=== PATIENT | female | born 1950 | race Caucasian/White ===

== ENCOUNTER 2017-02-22 07:34 | Outpatient (CLI) | payer MEDICARE ==
[2017-02-22 08:17] LABS: BASOPHILS # (AUTO) 0.1 10^3/uL (0.0-0.1); BASOPHILS % (AUTO) 1.2 %; EOSINOPHILS # (AUTO) 0.3 10^3/uL (0.0-0.7); EOSINOPHILS % (AUTO) 4.7 %; HCT - HEMATOCRIT 42.2 % (37.0-47.0); HGB - HEMOGLOBIN 14.1 g/dL (12.0-16.0); LYMPHOCYTES # (AUTO) 1.8 10^3/uL (1.5-3.5); LYMPHOCYTES % (AUTO) 31.3 %; MEAN CORPUSCULAR HEMOGLOBIN 27.8 pg (27.0-31.0); MEAN CORPUSCULAR HGB CONC 33.4 g/dL (32.0-36.0); MEAN CORPUSCULAR VOLUME 83.3 fL (81.0-99.0); MONOCYTES # (AUTO) 0.5 10^3/uL (0.0-1.0); MONOCYTES % (AUTO) 9.2 %; NEUTROPHILS # (AUTO) 3.1 10^3/uL (1.5-6.6); NEUTROPHILS % (AUTO) 53.6 %; RED BLOOD COUNT 5.06 10^6/uL (4.20-5.40); RED CELL DISTRIBUTION WIDTH 14.1 % (12.0-15.0); UNCORRECTED WHITE BLOOD COUNT 5.8 x10^3/uL; WHITE BLOOD COUNT 5.8 x10^3/uL (4.8-10.8)
[2017-02-22 08:58] LABS: ALBUMIN/GLOBULIN RATIO 1.6 (1.0-2.2); BILIRUBIN,TOTAL 0.6 mg/dL (0.2-1.0); BUN - BLOOD UREA NITROGEN 18 mg/dL (6-20); CALCIUM 9.4 mg/dL (8.5-10.3); CARBON DIOXIDE - CO2 24 mmol/L (21-32); CHLORIDE 103 mmol/L (101-111); CHOL/HDL RATIO 3.9 (<4.4); CHOLESTEROL 282 mg/dL; CREATININE 0.8 mg/dL (0.4-1.0); GFR - MDRD 72 (>89); GLUCOSE 95 mg/dL (70-100); HDL CHOLESTEROL 72 mg/dL; LDL/HDL RATIO 2.7 (<4.4); POTASSIUM 3.9 mmol/L (3.5-5.0); SODIUM 138 mmol/L (135-145); TOTAL PROTEIN 7.2 g/dL (6.7-8.2); TRIGLYCERIDES 79 mg/dL; VLDL CHOLESTEROL 16 mg/dL
== END 2017-02-22 07:35 | disposition home or self-care (01) ==
LOC: LAB 07:34
PROVIDERS: ATTEND Physician Assistant Medical
DX: E55.9 Vitamin D deficiency, unspecified (principal); E78.5 Hyperlipidemia, unspecified; M81.0 Age-related osteoporosis without current pathological fracture; Z79.899 Other long term (current) drug therapy
CPT/HCPCS: 36415; 80053; 80061; 82306; 84443; 85025

== ENCOUNTER 2017-08-12 07:29 | Day surgery (SDC) | payer MEDICARE ==
[2017-08-12] MEDS ORDERED: LACTATED RINGERS 1,000 ML IV ONE (07:50)
[2017-08-12] MEDS ORDERED: SIMETHICONE 40 MG/0.6 ML 30 ML BOTTLE ONE (07:54)
[2017-08-12] MEDS ORDERED: MIDAZOLAM 2 MG/2 ML VIAL IVP ONE (08:35)
[2017-08-12] MEDS ORDERED: fentaNYL 250 MCG/5 ML VIAL IVP ONE (08:35)
[2017-08-12 09:31] VITALS: BP 144/75
== END 2017-08-12 07:30 | disposition home or self-care (01) ==
LOC: SDS 07:29
PROVIDERS: ATTEND Surgery
PROC: 0DJD8ZZ Inspection of Lower Intestinal Tract, Via Natural or Artificial Opening Endoscopic (ICD-10-PCS; principal; 2017-08-12 08:30)
DX: Z12.11 Encounter for screening for malignant neoplasm of colon (principal)
CPT/HCPCS: A9270; G0121; J3010; J7120

== ENCOUNTER 2017-09-13 07:11 | Outpatient (CLI) | payer MEDICARE | END 2017-09-13 07:12 | disposition critical access hospital (66) | LOC: EMS 07:11 | PROVIDERS: ATTEND Surgery | DX: R42 Dizziness and giddiness (principal); R11.2 Nausea with vomiting, unspecified; R19.7 Diarrhea, unspecified | CPT/HCPCS: A0425; A0427 ==

== ENCOUNTER 2017-09-13 07:25 | Inpatient (IN) | payer MEDICARE ==
--- NOTE | 2017-09-13 07:42 | ED Physician Documentation ---
PD HPI FOCAL NEURO - Stated complaint Stated Complaint: L SIDED WEAKNESS - Chief complaint Chief Complaint: Neuro - History obtained from History obtained from: Patient, Family, EMS - History of Present Illness Timing - onset: Enter time (529), Today Timing - duration: Hours Timing - details: Abrupt onset, Still present Time of symptom onset unknown: Time of onset unknown Severity of deficit: Severe Weakness: No: Face, Arm, Hand, Leg, Foot, Right, Left, Other Numbness: No: Face, Arm, Hand, Leg, Foot, Right, Left, Other Associated symptoms: Nausea / vomiting, Other (vertigo propelling patient to the left.) Contributing factors: negative: Anticoagulated Baseline status: positive: A&OX3, ambulatory, indep Similar symptoms before: Has not had sx before Recently seen: Not recently seen - Additional information Additional information: Previously healthy 66-year-old female on no medications awoke this morning about 530 with profound dizziness and noted that she was propelled to the left when she attempted to ambulate. She has had persistence of the symptoms and nausea vomiting associated with them. She denies any weakness she denies any difficulty with her speech and she denies any incoordination with the exception of her balance which is specifically propelling her to the left when she tries to walk. She describes an odd pain or sensation to the face on the left last night and this is better but not resolved this morning. Review of Systems Constitutional: denies: Fever, Chills, Myalgias Eyes: denies: Decreased vision Ears: denies: Ear pain Nose: denies: Congestion Throat: denies: Sore throat Cardiac: denies: Chest pain / pressure, Palpitations Respiratory: denies: Dyspnea, Cough GI: reports: Nausea, Vomiting. denies: Abdominal Pain : denies: Dysuria, Frequency Skin: denies: Rash Musculoskeletal: denies: Neck pain, Back pain, Extremity pain Neurologic: reports: Other (dizziness and off balance propelled to the left.). 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 - Present Medications Home Medications: Ambulatory Orders Medication Instructions Recorded Confirmed Fexofenadine HCl [Abby Allergy] 60 mg PO DAILY 08/12/17 08/12/17 - Allergies Allergies/Adverse Reactions: Allergies Allergy/AdvReac Type Severity Reaction Status Date / Time codeine AdvReac Nausea Verified 08/11/17 13:13 meperidine [From Demerol] AdvReac Nausea Verified 08/11/17 13:13 promethazine [From Phenergan] AdvReac Nausea Verified 08/11/17 13:13 - Social History Does the pt smoke?: No Smoking Status: Never smoker Does the pt drink ETOH?: Yes Does the pt have substance abuse?: No PD ED PE NORMAL - Vitals Vital signs reviewed: Yes (hypertensive) - General General: Alert and oriented X 3, No acute distress, Well developed/nourished - HEENT HEENT: Atraumatic, PERRL, EOMI, Ears normal, Moist mucous membranes, Pharynx benign, Dentition benign, Other (There are 5 beats of nystagmus to the right only ) - Neck Neck: Supple, no meningeal sign, No bony TTP, No JVD, No bruit - Cardiac Cardiac: RRR, No murmur - Respiratory Respiratory: No respiratory distress, Clear bilaterally - Abdomen Abdomen: Soft, Non tender - Back Back: No CVA TTP, No spinal TTP - Derm Derm: Normal color, Warm and dry, No rash - Extremities Extremities: No deformity, No edema - Neuro Neuro: No motor deficit, No sensory deficit Eye Opening: Spontaneous Motor: Obeys Commands Verbal: Oriented GCS Score: 15 - Psych Psych: Normal mood, Normal affect - Free text exam Free text exam: The patient has several beats of nystagmus to the right only and when she attempts to stand up to walk she lists specifically to the left. This is obvious when she attempts to stand or to move forward at all off to the left she goes. NIHSS - Time Time: 07:40 - Level of Consciousness Level of consciousness: (0) Alert, Keenly responsive LOC Questions: (0) Answers both Q's correct LOC Commands: (0) Performs both correctly - Gaze Best Gaze: (0) Normal - Visual Visual: (0) No loss - Facial Palsy Facial Palsy: (0) Normal, symmetrical movement - Motor Arms (both separate) Motor Arm (right): (0) No drift Motor Arm (left): (0) No drift - Motor Legs (both separate) Motor Leg (right): (0) No drift Motor Leg (left): (0) No drift - Limb Ataxia Limb Ataxia: (0) Absent - Sensory Sensory: (0) Normal - Best Language Best Language: (0) No aphasia - Dysarthria Dysarthria: (0) Normal - Extinction and Inattention (formally neg Extinction and inattention: (0) No abnormality - Total Score/Results Total Score/Result: 0 Results - Vitals Vitals: Vital Signs - 24 hr 09/13/17 09/13/17 09/13/17 07:28 08:34 09:40 Temperature 36.1 C L 36.2 C L Heart Rate 76 77 74 Respiratory 16 15 16 Rate Blood Pressure 177/91 H 164/97 H 170/93 H O2 Saturation 96 97 97 09/13/17 09/13/17 11:28 12:44 Temperature 36.2 C L 36.3 C L Heart Rate 85 84 Respiratory 15 16 Rate Blood Pressure 184/97 H 160/95 H O2 Saturation 97 99 Oxygen O2 Source Room air - EKG (time done) 0743 Rate: Rate (enter#) (83) Rhythm: NSR Intervals: LBBB Compare to prior EKG: Old EKG unavailable Computer interpretation: Agree with computer - Labs Labs: Laboratory Tests 09/13/17 09/13/17 09/13/17 08:35 08:35 08:35 WBC 8.1 RBC 5.21 Hgb 14.5 Hct 43.9 MCV 84.3 MCH 27.9 MCHC 33.1 RDW 15.1 H Plt Count 192 MPV 8.9 Neut # 6.7 H Lymph # 1.0 L [place] # 0.3 Eos # 0.0 Baso # 0.0 Absolute Nucleated RBC 0.00 Nucleated RBC % 0.0 Sodium 134 L Potassium 3.5 Chloride 103 Carbon Dioxide 21 Anion Gap 10.0 BUN 12 Creatinine 0.6 Estimated GFR (MDRD) 100 Glucose 146 H Calcium 9.0 Total Bilirubin < 0.2 L AST 24 ALT 17 Alkaline Phosphatase 79 Troponin I < 0.04 Total Protein 7.3 Albumin 4.3 Globulin 3.0 Albumin/Globulin Ratio 1.4 Lipase 13 L Urine Color Urine Clarity Urine pH Ur Specific [place] Urine Protein Urine Glucose (UA) Urine Ketones Urine Occult Blood Urine Nitrite Urine Bilirubin Urine Urobilinogen Ur Leukocyte Esterase Urine RBC Urine WBC Ur Squamous Epith Cells Urine Bacteria Ur Microscopic Review Urine Culture Comments 09/13/17 09:29 WBC RBC Hgb Hct MCV MCH MCHC RDW Plt Count MPV Neut # Lymph # [place] # Eos # Baso # Absolute Nucleated RBC Nucleated RBC % Sodium Potassium Chloride Carbon Dioxide Anion Gap BUN Creatinine Estimated GFR (MDRD) Glucose Calcium Total Bilirubin AST ALT Alkaline Phosphatase Troponin I Total Protein Albumin Globulin Albumin/Globulin Ratio Lipase Urine Color YELLOW Urine Clarity SL. CLOUDY Urine pH 7.0 Ur Specific [place] 1.015 Urine Protein NEGATIVE Urine Glucose (UA) 100 H Urine Ketones TRACE Urine Occult Blood NEGATIVE Urine Nitrite NEGATIVE Urine Bilirubin NEGATIVE Urine Urobilinogen 0.2 (NORMAL) Ur Leukocyte Esterase NEGATIVE Urine RBC 0-5 Urine WBC 0-3 Ur Squamous Epith Cells RARE Squamous Urine Bacteria Many H Ur Microscopic Review INDICATED Urine Culture Comments INDICATED - Rads (name of study) CT angio neck Radiology: Prelim report reviewed (Impression: 1. Normal CTA of the neck. Carotid and vertebral arteries are patent without significant atherosclerotic disease, stenosis, or dissection.), EMP read indepedently, See rad report CT angio head Radiology: Prelim report reviewed (Impression: 1. Normal CTA of the head. No large vessel occlusion, significant vascular stenosis or aneurysm.), EMP read indepedently, See rad report CT head without Radiology: Prelim report reviewed (Impression: Generalized age-related cortical atrophic changes without evidence of acute intracranial abnormality.), EMP read indepedently, See rad report PD MEDICAL DECISION MAKING - ED course Complexity details: reviewed old records, reviewed results, re-evaluated patient , considered differential, d/w patient, d/w family ED course: 66-year-old previously well female has awoken this morning with symptoms of a lateral medullary infarction. She has propelling vertigo to the left and this has persisted. She has some nausea associated with this and this is improved with use of Zofran. She has rapid nystagmus to the right and lists to the left. She has some mild difficulty with swallowing but has retained temperature sensation to the face and upper extremities. Jenn Henderson neurology at [facility] is consulted in the case and she recommends a head impulse test to help distinguish infarct vs. peripheral labyrinthitis. A head impulse test is performed and the patient is not able to fixate with turning the head rapidly from left to right there is a secade delay. This would indicate a vestibular etiology vs a central etiology. She is admitted to observation with profound symptoms. Departure - Departure Disposition: ED Place in Observation Clinical Impression: Labyrinthitis, acute Qualifiers: Laterality: left Qualified Code(s): H83.02 - Labyrinthitis, left ear Condition: Stable Discharge Date/Time: 09/13/17 13:03
[2017-09-13] MEDS ORDERED: ONDANSETRON 4 MG/2 ML VIAL IVP STA (07:48)
[2017-09-13] MEDS ORDERED: MECLIZINE 12.5 MG TABLET PO STA (07:48)
--- NOTE | 2017-09-13 07:58 | CT Preliminary Report ---
Exam: CT HEAD W/O STROKE PROTOCOL IMPRESSION: Generalized age-related cortical atrophic changes without evidence of acute intracranial abnormality. [facility] The above findings were discussed with Dr. De Dios by Dr. Daniel Raya at 07:55 hrs on 09/13/17. SITE ID: [id number]
--- NOTE | 2017-09-13 07:58 | CT Report ---
EXAM: CT HEAD EXAM DATE: 09/13/2017 07:48 AM. CLINICAL HISTORY: Propelling vertigo left. Left-sided weakness. COMPARISON: None. TECHNIQUE: Multiaxial CT images were obtained from the foramen magnum to the vertex. Reformats: Coron al. IV contrast: None. In accordance with CT protocol optimization, one or more of the following dose reduction techniques w ere utilized for this exam: automated exposure control, adjustment of mA and/or KV based on patient s ize, or use of iterative reconstructive technique. FINDINGS: Parenchyma: No intraparenchymal hemorrhage. No evidence of mass, midline shift, or CT findings of acu te infarction. Enriquez-white differentiation is distinct. Diffuse chronic microangiopathic white matter changes are evident. Extraaxial Spaces: No subdural or epidural collections identified. Ventricles: The ventricles and cortical sulci are enlarged, consistent with age-related tissue loss. Sinuses and orbits: Imaged paranasal sinuses, orbits, and mastoids show no significant abnormality. Bones: No evidence of fracture or calvarial defect. Other: None. IMPRESSION: Generalized age-related cortical atrophic changes without evidence of acute intracranial abnormality. RADIA The above findings were discussed with Dr. De Dios by Dr. Daniel Raya at 07:55 hrs on 09/13/17. Referring Provider Line: [phone] SITE ID: [id number]
[2017-09-13] MEDS ORDERED: IOPAMIDOL-300 100 ML VIAL ONE (08:04)
[2017-09-13 08:39] LABS: BASOPHILS % (AUTO) 0.4 %; EOSINOPHILS % (AUTO) 0.5 %; HGB - HEMOGLOBIN 14.5 g/dL (12.0-16.0); LYMPHOCYTES % (AUTO) 12.3 %; MEAN CORPUSCULAR HEMOGLOBIN 27.9 pg (27.0-31.0); MEAN CORPUSCULAR HGB CONC 33.1 g/dL (32.0-36.0); MEAN CORPUSCULAR VOLUME 84.3 fL (81.0-99.0); MEAN PLATELET VOLUME 8.9 fL (7.9-10.8); MONOCYTES # (AUTO) 0.3 10^3/uL (0.0-1.0); MONOCYTES % (AUTO) 3.6 %; NEUTROPHILS # (AUTO) 6.7 10^3/uL (1.5-6.6); NEUTROPHILS % (AUTO) 83.2 %; PLT - PLATELET COUNT 192 10^3/uL (130-450); RED BLOOD COUNT 5.21 10^6/uL (4.20-5.40); RED CELL DISTRIBUTION WIDTH 15.1 % (12.0-15.0); WHITE BLOOD COUNT 8.1 x10^3/uL (4.8-10.8)
[2017-09-13 09:22] LABS: ALBUMIN 4.3 g/dL (3.2-5.5); ALBUMIN/GLOBULIN RATIO 1.4 (1.0-2.2); ALKALINE PHOSPHATASE 79 IU/L (42-121); ALT ALANINE AMINOTRANSFERASE 17 IU/L (10-60); AST ASPARTATE AMINOTRANSFERASE 24 IU/L (10-42); BILIRUBIN,TOTAL < 0.2 mg/dL (0.2-1.0); BUN - BLOOD UREA NITROGEN 12 mg/dL (6-20); CARBON DIOXIDE - CO2 21 mmol/L (21-32); CHLORIDE 103 mmol/L (101-111); CREATININE 0.6 mg/dL (0.4-1.0); GFR - MDRD 100 (>89); GLUCOSE 146 mg/dL (70-100); LIPASE 13 U/L (22-51); SODIUM 134 mmol/L (135-145); TOTAL PROTEIN 7.3 g/dL (6.7-8.2)
[2017-09-13 09:36] LABS: BILIRUBIN,URINE NEGATIVE (NEGATIVE); GLUCOSE, URINE (UA) 100 mg/dL (NEGATIVE); KETONES,URINE (UA) TRACE mg/dL (NEGATIVE); LEUKOCYTE ESTERASE, URINE NEGATIVE (NEGATIVE); NITRITE,URINE NEGATIVE (NEGATIVE); OCCULT BLOOD,URINE NEGATIVE (NEGATIVE); PROTEIN,URINE NEGATIVE (NEGATIVE); UROBILINOGEN,URINE 0.2 (NORMAL) E.U./dL (NORMAL)
[2017-09-13 09:46] LABS: CLARITY,URINE SL. CLOUDY (CLEAR)
[2017-09-13 09:52] LABS: BACTERIA,URINE Many /HPF (None Seen); RBC,URINE 0-5 /HPF (0-5); SQUAMOUS EPITHELIAL CELL,UR RARE Squamous (<= Few)
[2017-09-13] MEDS ORDERED: IOPAMIDOL-300 100 ML VIAL IVP ONE (09:52)
--- NOTE | 2017-09-13 10:06 | CT Report ---
EXAM: CT ANGIOGRAM HEAD. CT SCAN OF THE HEAD WITH CONTRAST. EXAM DATE: 09/13/2017 09:53 AM CLINICAL HISTORY: 66-year-old woman with propelling vertigo to the left and left-sided weakness. COMPARISON: Noncontrast head CT done immediately before. TECHNIQUE: - CT Scan Head: Using a multidetector scanner, axial images were acquired from the foramen magnum to the skull vertex following contrast administration. - CT Angiogram: Using a multidetector scanner, high-resolution axial images were acquired from the sk ull base through vertex following rapid infusion of intravenous contrast. Reformats: Multiplanar MIP reformats were reconstructed. Nascet criteria used for stenosis measurement. IV Contrast: 100 cc Isovue-300. In accordance with CT protocol optimization, one or more of the following dose reduction techniques w ere utilized for this exam: automated exposure control, adjustment of mA and/or KV based on patient s ize, or use of iterative reconstructive technique. FINDINGS: CTA HEAD: RIGHT: - Visualized Internal Carotid: Patent without significant stenosis or aneurysm. There is trace athero sclerotic plaque along the siphon. - Anterior Cerebral: Patent without significant stenosis or aneurysm. - Middle Cerebral: Patent without significant stenosis or aneurysm. - Posterior Cerebral: Patent without significant stenosis or aneurysm. - Posterior Communicating: Patent. No aneurysm. - Visualized Vertebral: Patent without significant stenosis or dissection. LEFT: - Visualized Internal Carotid: Patent without significant stenosis or aneurysm. There is minimal athe rosclerotic plaque along the siphon. - Anterior Cerebral: Patent without significant stenosis or aneurysm. - Middle Cerebral: Patent without significant stenosis or aneurysm. - Posterior Cerebral: Patent without significant stenosis or aneurysm. - Posterior Communicating: Not well seen. - Visualized Vertebral: Patent without significant stenosis or dissection. CENTRAL: - Anterior Communicating: Patent. No aneurysm. - Basilar: Patent without significant stenosis, dissection, or aneurysm. Dural Venous Sinuses and Major Central Veins: Patent. POSTCONTRAST HEAD: No abnormal enhancement. Prominent developmental venous anomaly is incidentally no jodie in the anterior left frontal lobe, a normal variant. IMPRESSION: 1. Normal CTA of the head. No large vessel occlusion, significant vascular stenosis, or aneurysm. RADIA Referring Provider Line: [phone] SITE ID: [id number]
--- NOTE | 2017-09-13 10:10 | CT Report ---
EXAM: CT ANGIOGRAM NECK EXAM DATE: 09/13/2017 09:53 AM. CLINICAL HISTORY: Propelling vertigo left. COMPARISON: 66-year-old woman with left-sided weakness and propelling vertigo to the left. TECHNIQUE: Routine axial helical imaging was performed from the skull base through the aortic arch. R econstructions: Routine multiplanar 3D MIP reconstructions. IV Contrast: 100 cc Isovue-300. Evaluatio n of arterial stenosis is based on a NASCET method of measurement. In accordance with CT protocol optimization, one or more of the following dose reduction techniques w ere utilized for this exam: automated exposure control, adjustment of mA and/or KV based on patient s ize, or use of iterative reconstructive technique. FINDINGS: RIGHT: - Common and Internal Carotid: Patent without signficant stenosis. There is trace calcified atheroscl erotic plaque at the bifurcation and along the siphon. Stenosis by NASCET criteria: 0%. No evidence o f dissection. No evidence of aneurysm along intracranial ICA. - External Carotid: Unremarkable. - Vertebral: Patent without significant stenosis. No evidence of dissection. LEFT: - Common and Internal Carotid: Patent without signficant stenosis. No evidence of atherosclerotic rachael que. Stenosis by NASCET criteria: 0%. No evidence of dissection. No evidence of aneurysm along intrac ranial ICA. - External Carotid: Unremarkable. - Vertebral: Patent without significant stenosis. No evidence of dissection. SOFT TISSUES AND BONES: Visualized soft tissues are unremarkable. Lung apices are clear. No evidence of acute fracture or malalignment of the cervical spine, but degenerative changes are present. IMPRESSION: 1. Normal CTA of the neck. Carotid and vertebral arteries are patent without significant atherosclero tic disease, stenosis, or dissection. [facility]IA Referring Provider Line: [phone] SITE ID: [id number]
[2017-09-13] MEDS ORDERED: ASPIRIN CHEW 81 MG TABLET PO STA (10:34)
[2017-09-13] MEDS ORDERED: SODIUM CHLORIDE FLUSH 0.9% 10 ML SYRINGE IVP PRN (12:11)
[2017-09-13] MEDS ORDERED: ACETAMINOPHEN 325 MG TABLET PO PRN (12:11)
[2017-09-13] MEDS ORDERED: ZOLPIDEM 5 MG TABLET PO PRN (12:11)
[2017-09-13] MEDS ORDERED: METOCLOPRAMIDE 10 MG/2 ML VIAL IVP PRN (12:21)
[2017-09-13] MEDS ORDERED: MECLIZINE 12.5 MG TABLET PO PRN (12:21)
[2017-09-13] MEDS ORDERED: diazePAM 5 MG TABLET PO STA (12:24)
--- NOTE | 2017-09-13 12:28 | HISTORY & PHYSICAL EXAMINATION ---
Chief Complaint - Chief Complaint Chief Complaint: vertigo History of Present Illness - Admitted From Admitted From:: ER - History Obtained From History obtained from: Pt and family - History of Present Illness HPI Comment/Other: Ms. Gibson is 66-yrs-old female without significant PMH, who present ER with chieft complaints of sudden onset dizziness, propelled to the left side and with persistence of nausea and vomiting. Pt report the onset is about 5:30 am today morning. She suddenly felt profound dizziness. Pt report she was propelled to the left side, unbalanced and leaned to left side when she attempted to walk. She then developed nausea and vomiting, and persistence of nausea and vomiting. She also report she had some odd sensation to the left side face. She denies any bilateral upper and lower extremities weakness, abnormal sensation, denies any difficult speech, denies any difficult incoordination, and denies headache, denies hearing loss or vision changing. No chest pain, shortness of breath, fever, chill, cough, recent travel are reported from pt. CT of head, CTA of neck and brain were unremarkable. ER provider called [facility], Neurologist Dr. Jenn STANLEY was consulted. The neurologist recommended head impulse test which was performed in ER. It was positive which indicated a vestibular etiology vs a central etiology. Lab test in ER are unremarkable. 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 She had 5 children, 3 boys and 2 girl. Living arrangement: At home Living Situation: With spouse/s.o. 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 She never smoked. No alcohol and drug issue. - Substance History Use: Uses substance without health or social issues: NONE - POLST POLST Status: Full Code Meds/Allgy - Home Medications Home Medications: Ambulatory Orders Medication Instructions Recorded Confirmed Fexofenadine HCl [Abby Allergy] 60 mg PO DAILY 08/12/17 08/12/17 - Allergies Allergies/Adverse Reactions: Allergies Allergy/AdvReac Type Severity Reaction Status Date / Time codeine AdvReac Nausea Verified 08/11/17 13:13 meperidine [From Demerol] AdvReac Nausea Verified 08/11/17 13:13 promethazine [From Phenergan] AdvReac Nausea Verified 08/11/17 13:13 Review of Systems - Constitutional Constitutional: denies: Fatigue, Fever, Chills, Malaise, Weakness, Poor appetite , Diaphoresis, Night sweats - Eyes Eyes: denies: Pain, Irritation, Amaurosis, Blurred vision, Spots in vision, Field loss, Vision loss, Dipolpia, Corrective lenses - Ears, Nose & Throat Ears, Nose & Throat: reports: Ear pain, Vertigo. denies: Hearing loss, Hearing aids, Tinnitus, Nasal pain, Nasal discharge, Nosebleeds, Nasal obstruction, Nasal congestion, Postnasal drainage, Dentures, Sore throat, Hoarseness, Mouth lesions, Bleeding gums, Dental decay, Dental pain - Cardiovascular Cariovascular: denies: Irregular heart rate, Palpitations, Chest pain, Edema, Lightheadedness, Syncope, Exertional dyspnea, Decr. exercise tolerance - Respiratory Respiratory: denies: Cough, Sputum production, Wheezing, Snoring, Hemoptysis, Orthopnea, SOB at rest, SOB with exertion, Apnea, Stridor, Pleuritic pain - Gastrointestinal Gastrointestinal: reports: Nausea, Vomiting. denies: Abdominal pain, Abdominal distention, Constipation, Diarrhea, Change in bowel habits, Rectal bleeding, Black stools, Bloody stools, Bile emesis, Ramiro blood emesis, Coffee grounds emesis, Reflux/heartburn - Genitourinary Genitourinary: denies: Dysuria, Frequency, Urgency, Hematuria, Incontinence, Flank pain, Nocturia, Urethral discharge - Musculoskeletal Musculoskeletal: denies: Muscle pain, Back pain, Muscle aches, Stiffness, Limited range of motion, Muscle weakness, Gout, Joint pain, Joint swelling - Integumentary Integumentary: denies: Rash, Pruritis, Lesions, Dryness, Lumps, Acne, Pigment changes - Neurological Neurological: reports: Dizziness, Abnormal gait. denies: General weakness, Focal weakness, Headache, Numbness, Memory problems, Pre-existing deficit, Seizures, Incoordination, Slurred speech - Psychiatric Psychiatric: denies: Depression, Anxiety, Suicidal, Delusions, Hallucinations, Homicidal - Endocrine Endocrine: denies: Polyuria, Polydypsia, Polyphagia, Intolerance to cold - Hematologic/Lymphatic Hematologic/Lymphatic: denies: Anemia, Bruising, Petechiae, Blood clots, Lymphadenopathy, Bleeding tendencies Exam - Vital Signs Reviewed Vital Signs: Yes Vital Signs: Vital Signs x48h Temp Pulse Resp BP Pulse Ox 09/13/17 11:28 36.2 C L 85 15 184/97 H 97 09/13/17 09:40 36.2 C L 74 16 170/93 H 97 09/13/17 08:34 77 15 164/97 H 97 09/13/17 07:28 36.1 C L 76 16 177/91 H 96 - Physical Exam General Appearance: positive: Alert, Mild distress. negative: Lethargic Eyes Bilateral: positive: Normal inspection, PERRL, No lid inflammation, Conjunctivae nml ENT: positive: ENT inspection nml, Pharynx nml, No signs of dehydration. negative: Purulent nasal drainage, Pharyngeal erythema, Oral lesions Neck: positive: Nml inspection, Thyroid nml, No JVD. negative: Thyromegaly, Lymphadenopathy (R), Lymphadenopathy (L), Stiff neck, Carotid bruit, Swelling/ bruising, Tracheal deviation Respiratory: positive: Chest non-tender, No respiratory distress, Breath sounds nml. negative: Wheezes, Rales, Rhonchi Cardiovascular: positive: Regular rate & rhythm, No murmur, No gallop. negative : Irregularly irregular, Extrasystoles, Tachycardia, Bradycardia, JVD present, Systolic murmur, Diastolic murmur Peripheral Pulses: positive: 2+ Abdomen: positive: Non-tender, No organomegaly, Nml bowel sounds, No distention. negative: Tenderness, Guarding, Rebound Back: positive: Nml inspection. negative: CVA tenderness (R), CVA tenderness (L ) Skin: positive: Color nml, No rash, Warm, Dry. negative: Cyanosis, Diaphoresis , Pallor Extremities: positive: Non-tender, Full ROM, Nml appearance, No pedal edema. negative: Calf tenderness, Joint swelling, Pascual's sign/cords Neurologic/Psychiatric: positive: Oriented x3, CN's nml (2-12), Motor nml, Sensation nml, Mood/affect nml. negative: Weakness, Sensory loss, Facial droop , Slurred/abnml speech, Depressed mood/affect Conclusion/Plan - Problem List (1) Labyrinthitis, acute Conclusion/Plan: consult with [facility] neurologist, ER provider did head impulse test positive Antivert PRN valium once once prednisone IVF neuro check vital and lab monitor pt is admitted observation unit Qualifiers: Laterality: left Qualified Code(s): H83.02 - Labyrinthitis, left ear (2) Nausea & vomiting Conclusion/Plan: antiemesis Zofran and reglan PRN IVF vital monitor, lab monitor (3) DVT prophylaxis Conclusion/Plan: SCD and Lovenox (4) Full code status Conclusion/Plan: pt request full code status - Lab Results Fish Bones: 09/14/17 05:55 09/14/17 05:55 Core Measures - Anticipated LOS I expect patient to be DC'd or transferred within 96 hours.: Yes - DVT/VTE - Prophylaxis VTE/DVT Device ordered at admit?: Yes VTE/DVT Prophylaxis med ordered at admit?: Yes
[2017-09-13] MEDS: SODIUM CHLORIDE FLUSH 0.9% 10 ML SYRINGE IVP SCH (13:31)
[2017-09-13] MEDS: SODIUM CHLORIDE 0.9% 1,000 ML IV SCH ×2 (13:31→23:39)
[2017-09-13] MEDS: ONDANSETRON 4 MG/2 ML VIAL IVP PRN ×2 (13:42→19:48)
[2017-09-13] MEDS ORDERED: predniSONE 20 MG TABLET PO SCH (18:00)
[2017-09-14] MEDS: SODIUM CHLORIDE FLUSH 0.9% 10 ML SYRINGE IVP SCH ×4 (02:53→15:54)
[2017-09-14 06:08] LABS: BASOPHILS % (AUTO) 0.4 %; HGB - HEMOGLOBIN 13.8 g/dL (12.0-16.0); LYMPHOCYTES # (AUTO) 1.5 10^3/uL (1.5-3.5); LYMPHOCYTES % (AUTO) 14.9 %; MEAN CORPUSCULAR HGB CONC 32.5 g/dL (32.0-36.0); MEAN CORPUSCULAR VOLUME 83.2 fL (81.0-99.0); MEAN PLATELET VOLUME 8.9 fL (7.9-10.8); MONOCYTES # (AUTO) 0.7 10^3/uL (0.0-1.0); MONOCYTES % (AUTO) 6.7 %; NEUTROPHILS # (AUTO) 7.9 10^3/uL (1.5-6.6); PLT - PLATELET COUNT 231 10^3/uL (130-450); RED BLOOD COUNT 5.11 10^6/uL (4.20-5.40); WHITE BLOOD COUNT 10.1 x10^3/uL (4.8-10.8)
[2017-09-14 06:14] LABS: ALBUMIN 3.9 g/dL (3.2-5.5); ALBUMIN/GLOBULIN RATIO 1.4 (1.0-2.2); BILIRUBIN,TOTAL 0.5 mg/dL (0.2-1.0); CALCIUM 8.4 mg/dL (8.5-10.3); CREATININE 0.7 mg/dL (0.4-1.0); MAGNESIUM 1.9 mg/dL (1.7-2.8); TOTAL PROTEIN 6.7 g/dL (6.7-8.2)
[2017-09-14] MEDS: ENOXAPARIN 40 MG/0.4 ML SYRINGE SUBQ SCH (08:17)
[2017-09-14] MEDS: POLYETHYLENE GLYCOL 3350 17 GM PACKET PO SCH (08:17)
[2017-09-14] MEDS: FAMOTIDINE 20 MG TABLET PO SCH (08:17)
[2017-09-14] MEDS: SODIUM CHLORIDE 0.9% 1,000 ML IV SCH ×2 (08:18→18:44)
[2017-09-14] MEDS: predniSONE 20 MG TABLET PO SCH (10:56)
[2017-09-14] MEDS: ACYCLOVIR 200 MG CAPSULE PO SCH ×4 (10:57→21:58)
--- NOTE | 2017-09-14 12:22 | PROVIDER PROGRESS NOTE ---
Subjective - Prog Note Date Prog Note Date: 09/14/17 - Subjective Pt reports feeling: Improved Subjective: pt report her vertigo and N/V are becoming better but balance is still the problem. Pt also present left facial mild drop and can not rise left eyebrow well. pt also report balance problem as yesterday, propelled to left when walk. Denies chest pain, headache, SOB Current Medications - Current Medications Current Medications: Active Medications Acetaminophen (Tylenol) 650 mg PO Q4HR PRN PRN Reason: Pain 1 to 4 Last Admin: 09/13/17 21:33 Dose: 162.5 mg Acyclovir (Zovirax) 200 mg PO 5XD [facility] Last Admin: 09/14/17 10:57 Dose: 200 mg Enoxaparin Sodium (Lovenox) 40 mg SUBQ DAILY [facility] Last Admin: 09/14/17 08:17 Dose: 40 mg Famotidine (Pepcid) 20 mg PO DAILY [facility] Last Admin: 09/14/17 08:17 Dose: Not Given Sodium Chloride (Normal Saline 0.9%) 1,000 mls @ 100 mls/hr IV .Q10H [facility] Last Admin: 09/14/17 08:18 Dose: 100 mls/hr Meclizine HCl (Antivert) 12.5 mg PO Q6HR PRN PRN Reason: Dizziness Last Admin: 09/14/17 08:39 Dose: 12.5 mg Metoclopramide HCl (Reglan Inj) 5 mg IVP Q6HR PRN PRN Reason: Nausea / Vomiting Ondansetron HCl (Zofran Inj) 4 mg IVP Q6HR PRN PRN Reason: Nausea / Vomiting Last Admin: 09/13/17 19:48 Dose: 4 mg Polyethylene Glycol (Miralax) 17 gm PO DAILY [facility] Last Admin: 09/14/17 08:17 Dose: Not Given Prednisone (Deltasone) 60 mg PO DAILYWM [facility] Last Admin: 09/14/17 10:56 Dose: 60 mg Sodium Chloride (Normal Saline Flush 0.9%) 10 ml IVP PRN PRN PRN Reason: NEEDED PER PROVIDER ORDERS Last Admin: 09/13/17 18:02 Dose: 10 ml Sodium Chloride (Normal Saline Flush 0.9%) 10 ml IVP 0100,0900,1700 [facility] Last Admin: 09/14/17 07:25 Dose: Not Given Zolpidem Tartrate (Ambien) 5 mg PO QPM PRN PRN Reason: Insomnia Fexofenadine HCl [Abby Allergy] 60 mg PO DAILY 08/12/17 Objective - Vital Signs/Intake & Output Reviewed Vital Signs: Yes Vital Signs: Vital Signs x48h Temp Pulse Resp BP Pulse Ox 09/14/17 07:59 36.9 C 83 18 161/78 H 98 Intake & Output: Intake & Output 09/11/17 09/12/17 09/13/17 09/14/17 23:59 23:59 23:59 23:59 Intake Total 1200 965 Output Total 951 Balance 249 965 - Objective General Appearance: positive: No acute distress, Alert. negative: Lethargic Eyes Bilateral: positive: Normal inspection, PERRL, No lid inflammation, Conjunctivae nml ENT: positive: ENT inspection nml, Pharynx nml, No signs of dehydration. negative: Purulent nasal drainage, Pharyngeal erythema, Oral lesions Neck: positive: Nml inspection, Thyroid nml, No JVD. negative: Thyromegaly, Lymphadenopathy (R), Lymphadenopathy (L), Stiff neck, Carotid bruit, Swelling/ bruising, Tracheal deviation Respiratory: positive: Chest non-tender, No respiratory distress, Breath sounds nml. negative: Wheezes, Rales, Rhonchi Cardiovascular: positive: Regular rate & rhythm, No murmur, No gallop. negative : Irregularly irregular, Extrasystoles, Tachycardia, Bradycardia, JVD present, Systolic murmur, Diastolic murmur Peripheral Pulses: 2+ Radial (R), 2+ Radial (L), 2+ Dorsalis pedis (R), 2+ Dorsalis pedis (L) Abdomen: positive: Non-tender, No organomegaly, Nml bowel sounds, No distention. negative: Tenderness, Guarding, Rebound Back: positive: Nml inspection. negative: CVA tenderness (R), CVA tenderness (L ) Skin: positive: Color nml, No rash, Warm, Dry. negative: Cyanosis, Diaphoresis , Pallor Extremities: positive: Non-tender, Full ROM, Nml appearance. negative: Calf tenderness, Pascual's sign/cords Neurologic/Psychiatric: positive: Oriented x3, Sensation nml, Mood/affect nml, Facial droop, Other (left eyebrow can not rise as the right one). negative: Sensory loss, Slurred/abnml speech, Depressed mood/affect - Lab Results Fish Bones: 09/14/17 05:55 09/14/17 05:55 Other Labs: Lab Results x24hrs 09/14/17 09/14/17 Range/Units 05:55 05:55 WBC 10.1 (4.8-10.8) x10^3/uL RBC 5.11 (4.20-5.40) 10^6/uL Hgb 13.8 (12.0-16.0) g/dL Hct 42.5 (37.0-47.0) % MCV 83.2 (81.0-99.0) fL MCH 27.0 (27.0-31.0) pg MCHC 32.5 (32.0-36.0) g/dL RDW 15.0 (12.0-15.0) % Plt Count 231 (130-450) 10^3/uL MPV 8.9 (7.9-10.8) fL Neut # 7.9 H (1.5-6.6) 10^3/uL Lymph # 1.5 (1.5-3.5) 10^3/uL [place] # 0.7 (0.0-1.0) 10^3/uL Eos # 0.0 (0.0-0.7) 10^3/uL Baso # 0.0 (0.0-0.1) 10^3/uL Absolute Nucleated RBC 0.00 x10^3/uL Nucleated RBC % 0.0 /100WBC Sodium 135 (135-145) mmol/L Potassium 3.5 (3.5-5.0) mmol/L Chloride 106 (101-111) mmol/L Carbon Dioxide 23 (21-32) mmol/L Anion Gap 6.0 (6-13) BUN 14 (6-20) mg/dL Creatinine 0.7 (0.4-1.0) mg/dL Estimated GFR (MDRD) 84 L (>89) Glucose 115 H (70-100) mg/dL Calcium 8.4 L (8.5-10.3) mg/dL Magnesium 1.9 (1.7-2.8) mg/dL Total Bilirubin 0.5 (0.2-1.0) mg/dL AST 17 (10-42) IU/L ALT 17 (10-60) IU/L Alkaline Phosphatase 74 (42-121) IU/L Total Protein 6.7 (6.7-8.2) g/dL Albumin 3.9 (3.2-5.5) g/dL Globulin 2.8 (2.1-4.2) g/dL Albumin/Globulin Ratio 1.4 (1.0-2.2) ABX Reporting Has patient been on IV antibiotics over the past 48 hours?: No Assessment/Plan - Problem List (1) Labyrinthitis, acute Impression: pt report N/V and vertigo became better but balance is till problem continue antiemesis continue antivert continue neuro check Qualifiers: Laterality: left Qualified Code(s): H83.02 - Labyrinthitis, left ear (2) Nausea & vomiting Impression: better controlled continue symptom control with antiemesis continue IVF (3) Wilder's palsy Impression: pt began with left ear pain. it appears pt left facial mild droop and difficult to rise left eyebrow, odd sensation in left face reported by Pt. palsy is suspicious. begin with 60 mg Prednisone, add acyclovir neuro check continue vital, lab monitor (4) Unsteady gait Impression: pt still is leaning on left side when she walks. CT, CTA of brain reveals unremarkable yesterday order MRI to R/O stroke, follow up fall precaution continue support, neuro check
[2017-09-14] MEDS: ONDANSETRON 4 MG/2 ML VIAL IVP PRN (15:54)
[2017-09-14] MEDS: CIPROFLOXACIN 250 MG TABLET PO SCH (21:00)
[2017-09-15] MEDS: SODIUM CHLORIDE 0.9% 1,000 ML IV SCH ×3 (04:56→20:24)
[2017-09-15 05:23] LABS: BASOPHILS # (AUTO) 0.1 10^3/uL (0.0-0.1); BASOPHILS % (AUTO) 0.9 %; EOSINOPHILS % (AUTO) 0.5 %; HGB - HEMOGLOBIN 14.8 g/dL (12.0-16.0); LYMPHOCYTES # (AUTO) 2.8 10^3/uL (1.5-3.5); LYMPHOCYTES % (AUTO) 31.6 %; MEAN CORPUSCULAR HEMOGLOBIN 27.2 pg (27.0-31.0); MEAN CORPUSCULAR HGB CONC 32.4 g/dL (32.0-36.0); MEAN PLATELET VOLUME 9.2 fL (7.9-10.8); MONOCYTES # (AUTO) 0.7 10^3/uL (0.0-1.0); MONOCYTES % (AUTO) 7.8 %; NEUTROPHILS # (AUTO) 5.3 10^3/uL (1.5-6.6); NEUTROPHILS % (AUTO) 59.2 %; PLT - PLATELET COUNT 233 10^3/uL (130-450); RED BLOOD COUNT 5.46 10^6/uL (4.20-5.40); RED CELL DISTRIBUTION WIDTH 14.9 % (12.0-15.0); WHITE BLOOD COUNT 8.9 x10^3/uL (4.8-10.8)
[2017-09-15 05:33] LABS: ALBUMIN 4.1 g/dL (3.2-5.5); ALBUMIN/GLOBULIN RATIO 1.4 (1.0-2.2); BILIRUBIN,TOTAL 0.9 mg/dL (0.2-1.0); CREATININE 0.7 mg/dL (0.4-1.0); TOTAL PROTEIN 7.1 g/dL (6.7-8.2)
[2017-09-15] MEDS: ACYCLOVIR 200 MG CAPSULE PO SCH ×2 (06:26→10:04)
[2017-09-15] MEDS ORDERED: cloNIDine 0.1 MG TABLET PO PRN (07:27)
[2017-09-15] MEDS: SODIUM CHLORIDE FLUSH 0.9% 10 ML SYRINGE IVP SCH ×2 (07:40→16:32)
[2017-09-15] MEDS: ENOXAPARIN 40 MG/0.4 ML SYRINGE SUBQ SCH (08:05)
[2017-09-15] MEDS: FAMOTIDINE 20 MG TABLET PO SCH (08:05)
[2017-09-15] MEDS: predniSONE 20 MG TABLET PO SCH (08:05)
[2017-09-15] MEDS: CIPROFLOXACIN 250 MG TABLET PO SCH ×2 (08:05→20:25)
[2017-09-15] MEDS: POTASSIUM CHLOR 10 MEQ/100 ML 10 MEQ/100 ML BAG IV SCH ×3 (08:06→09:18)
[2017-09-15] MEDS: POLYETHYLENE GLYCOL 3350 17 GM PACKET PO SCH (08:06)
--- NOTE | 2017-09-15 12:05 | PROVIDER PROGRESS NOTE ---
Subjective - Prog Note Date Prog Note Date: 09/15/17 - Subjective Pt reports feeling: Improved Subjective: pt report her swallow Current Medications - Current Medications Current Medications: Active Medications Acetaminophen (Tylenol) 650 mg PO Q4HR PRN PRN Reason: Pain 1 to 4 Last Admin: 09/13/17 21:33 Dose: 162.5 mg Acyclovir (Zovirax) 200 mg PO 5XD [facility] Last Admin: 09/15/17 10:04 Dose: 200 mg Ciprofloxacin (Cipro) 250 mg PO BID [facility] Last Admin: 09/15/17 08:05 Dose: 250 mg Clonidine HCl (Catapres) 0.1 mg PO BID PRN PRN Reason: Hypertensive Emergency Enoxaparin Sodium (Lovenox) 40 mg SUBQ DAILY [facility] Last Admin: 09/15/17 08:05 Dose: 40 mg Famotidine (Pepcid) 20 mg PO DAILY [facility] Last Admin: 09/15/17 08:05 Dose: 20 mg Sodium Chloride (Normal Saline 0.9%) 1,000 mls @ 75 mls/hr IV .[id number] [facility] Last Admin: 09/15/17 07:39 Dose: Not Given Meclizine HCl (Antivert) 12.5 mg PO Q6HR PRN PRN Reason: Dizziness Last Admin: 09/14/17 08:39 Dose: 12.5 mg Metoclopramide HCl (Reglan Inj) 5 mg IVP Q6HR PRN PRN Reason: Nausea / Vomiting Ondansetron HCl (Zofran Inj) 4 mg IVP Q6HR PRN PRN Reason: Nausea / Vomiting Last Admin: 09/14/17 15:54 Dose: 4 mg Polyethylene Glycol (Miralax) 17 gm PO DAILY [facility] Last Admin: 09/15/17 08:06 Dose: Not Given Prednisone (Deltasone) 60 mg PO DAILYWM [facility] Last Admin: 09/15/17 08:05 Dose: 60 mg Sodium Chloride (Normal Saline Flush 0.9%) 10 ml IVP PRN PRN PRN Reason: NEEDED PER PROVIDER ORDERS Last Admin: 09/13/17 18:02 Dose: 10 ml Sodium Chloride (Normal Saline Flush 0.9%) 10 ml IVP 0100,0900,1700 [facility] Last Admin: 09/15/17 07:40 Dose: Not Given Zolpidem Tartrate (Ambien) 5 mg PO QPM PRN PRN Reason: Insomnia No Known Home Medications [No Known Home Medications] 09/14/17 Objective - Vital Signs/Intake & Output Reviewed Vital Signs: Yes Vital Signs: Vital Signs x48h Temp Pulse Resp BP Pulse Ox 09/15/17 07:27 36.9 C 88 17 124/99 H 98 Intake & Output: Intake & Output 09/12/17 09/13/17 09/14/17 09/15/17 23:59 23:59 23:59 23:59 Intake Total 1200 2305 1715.834 Output Total 951 Balance 249 2305 1715.834 - Objective General Appearance: positive: No acute distress, Alert. negative: Lethargic Eyes Bilateral: positive: Normal inspection, PERRL, No lid inflammation, Conjunctivae nml ENT: positive: ENT inspection nml, Pharynx nml, No signs of dehydration. negative: Purulent nasal drainage, Pharyngeal erythema, Oral lesions Neck: positive: Nml inspection, Thyroid nml, No JVD, Trachea midline. negative : Thyromegaly, Lymphadenopathy (R), Lymphadenopathy (L), Stiff neck, Carotid bruit, Swelling/bruising, Tracheal deviation Respiratory: positive: Chest non-tender, No respiratory distress, Breath sounds nml. negative: Wheezes, Rales, Rhonchi Cardiovascular: positive: Regular rate & rhythm, No murmur, No gallop. negative : Irregularly irregular, Extrasystoles, Tachycardia, Bradycardia, JVD present, Systolic murmur, Diastolic murmur Peripheral Pulses: 2+ Radial (R), 2+ Radial (L), 2+ Dorsalis pedis (R), 2+ Dorsalis pedis (L) Abdomen: positive: Non-tender, No organomegaly, Nml bowel sounds, No distention. negative: Tenderness, Guarding, Rebound Back: positive: Nml inspection. negative: CVA tenderness (R), CVA tenderness (L ) Skin: positive: Color nml, No rash, Warm, Dry. negative: Cyanosis, Diaphoresis , Pallor Extremities: positive: Non-tender, Full ROM. negative: Calf tenderness, Joint swelling, Pascual's sign/cords Neurologic/Psychiatric: positive: Oriented x3, Sensation nml, Mood/affect nml, Other (leaning to left side is better than yesterday. Still has some unsteady but better than yesterday.). negative: Sensory loss, Facial droop, Slurred/ abnml speech, Depressed mood/affect - Lab Results Fish Bones: 09/15/17 04:38 09/15/17 04:38 Other Labs: Lab Results x24hrs 09/15/17 09/15/17 Range/Units 04:38 04:38 WBC 8.9 (4.8-10.8) x10^3/uL RBC 5.46 H (4.20-5.40) 10^6/uL Hgb 14.8 (12.0-16.0) g/dL Hct 45.9 (37.0-47.0) % MCV 84.0 (81.0-99.0) fL MCH 27.2 (27.0-31.0) pg MCHC 32.4 (32.0-36.0) g/dL RDW 14.9 (12.0-15.0) % Plt Count 233 (130-450) 10^3/uL MPV 9.2 (7.9-10.8) fL Neut # 5.3 (1.5-6.6) 10^3/uL Lymph # 2.8 (1.5-3.5) 10^3/uL [place] # 0.7 (0.0-1.0) 10^3/uL Eos # 0.0 (0.0-0.7) 10^3/uL Baso # 0.1 (0.0-0.1) 10^3/uL Absolute Nucleated RBC 0.01 x10^3/uL Nucleated RBC % 0.1 /100WBC Sodium 140 (135-145) mmol/L Potassium 3.3 L (3.5-5.0) mmol/L Chloride 106 (101-111) mmol/L Carbon Dioxide 24 (21-32) mmol/L Anion Gap 10.0 (6-13) BUN 10 (6-20) mg/dL Creatinine 0.7 (0.4-1.0) mg/dL Estimated GFR (MDRD) 84 L (>89) Glucose 93 (70-100) mg/dL Calcium 9.0 (8.5-10.3) mg/dL Total Bilirubin 0.9 (0.2-1.0) mg/dL AST 20 (10-42) IU/L ALT 18 (10-60) IU/L Alkaline Phosphatase 76 (42-121) IU/L Total Protein 7.1 (6.7-8.2) g/dL Albumin 4.1 (3.2-5.5) g/dL Globulin 3.0 (2.1-4.2) g/dL Albumin/Globulin Ratio 1.4 (1.0-2.2) ABX Reporting Has patient been on IV antibiotics over the past 48 hours?: Yes Assessment/Plan - Problem List (1) Labyrinthitis, acute Impression: (1) Labyrinthitis, acute Impression: N/V and vergito improved well continue current treatment continue antiemesis continue antivert continue neuro check pt report N/V and vertigo became better but balance is till problem continue antiemesis continue antivert continue neuro check (2) Nausea & vomiting Impression: well controlled continue antiemesis as needed better controlled continue symptom control with antiemesis continue IVF (3) Wilder's palsy Impression: pt's ear pain is resolved. slight facial droop seems resolved continue with 60 mg Prednisone, add acyclovir pt began with left ear pain. it appears pt left facial mild droop and difficult to rise left eyebrow, odd sensation in left face reported by Pt. palsy is suspicious. begin with 60 mg Prednisone, add acyclovir neuro check continue vital, lab monitor (4) Unsteady gait Impression: clinic pt is improved MRI is pending, will follow up continue PT/OT pt still is leaning on left side when she walks. CT, CTA of brain reveals unremarkable yesterday order MRI to R/O stroke, follow up fall precaution continue support, neuro check Qualifiers: Laterality: left Qualified Code(s): H83.02 - Labyrinthitis, left ear
--- NOTE | 2017-09-15 13:13 | MRI Preliminary Report ---
Exam: MRI BRAIN W/O IMPRESSION: 1. 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 2. 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 3. Nonspecific multifocal cerebral white matter disease, potentially contributed to by chronic microa ngiopathy. [facility] SITE ID: [id number]
--- NOTE | 2017-09-15 13:21 | MRI Report ---
EXAM: MRI BRAIN WITHOUT CONTRAST EXAM DATE: 09/15/2017 11:48 AM. CLINICAL HISTORY: Acute dizziness. Nausea and vomiting. Unbalanced, leaning to the left. Acute stroke symptoms. COMPARISON: No prior MRI. TECHNIQUE: Multiplanar, multisequence T1-weighted and fluid-sensitive MR sequences of the brain were performed. Sequences optimized for routine evaluation. Other: None. IV Contrast: None. FINDINGS: Patchy and confluent edema is seen in the left lateral medulla. The lesion is about 6 x 10 mm transve rse and within it is patchy restricted diffusion. Findings are consistent with acute to subacute isch emic infarct of the left lateral medulla. No other MRI evidence for acute ischemic infarct. No acute hemorrhage. Chronic microhemorrhage versus punctate calcification or cavernous malformation where there is T2 hyperintensity in the upper medial left frontal lobe. Normal brain volume for age. No hydrocephalus, mass effect or midline shift. Mild to moderate nonspecific multifocal cerebral white matter disease. These findings may be secondar y to chronic small vessel ischemic white matter disease though the usual gamut of white matter condit ions may be considered. The nasal septum is deviated to the left. There is mild multifocal paranasal sinus mucosal thickening . No focal pathologic-appearing marrow signal changes in the skull or clivus. The high-resolution axial T2 weighted sequence of the internal auditory canals shows no evidence for space-occupying mass or nodule, the canalicular and cisternal segments of the seventh and eighth cran ial nerves appear unremarkable. IMPRESSION: 1. 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 2. 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 3. Nonspecific multifocal cerebral white matter disease, potentially contributed to by chronic microa ngiopathy. Findings of recent infarct called to the on-duty provider Dr. Ralph at 1:05 PM 09/15/2017. [facility] Referring Provider Line: [phone] SITE ID: [id number]
[2017-09-15] MEDS: ASPIRIN 325 MG TABLET PO SCH (15:17)
--- NOTE | 2017-09-15 17:15 | XRAY Report ---
MODIFIED BARIUM SWALLOW: 09/15/2017 CLINICAL INDICATION: Stroke, possible aspiration. FINDINGS: Various consistencies of barium were prepared and administered in conjunction with Speech Pathology. There was no evidence of penetration or aspiration with any administered consistency. Please also refer to full report from Speech Pathology. IMPRESSION: NO EVIDENCE OF PENETRATION OR ASPIRATION. FLUOROSCOPY TIME: 1 minute, 5 seconds; 1 spot image obtained (cinefluoroscopy recorded). TD: 09/15/2017 17:14
[2017-09-15] MEDS: ATORVASTATIN 40 MG TABLET PO SCH (20:25)
[2017-09-16] MEDS: SODIUM CHLORIDE FLUSH 0.9% 10 ML SYRINGE IVP SCH ×3 (01:19→21:10)
[2017-09-16 05:52] LABS: BASOPHILS # (AUTO) 0.1 10^3/uL (0.0-0.1); BASOPHILS % (AUTO) 0.8 %; EOSINOPHILS # (AUTO) 0.1 10^3/uL (0.0-0.7); EOSINOPHILS % (AUTO) 0.6 %; HGB - HEMOGLOBIN 14.1 g/dL (12.0-16.0); LYMPHOCYTES # (AUTO) 3.6 10^3/uL (1.5-3.5); LYMPHOCYTES % (AUTO) 36.9 %; MEAN CORPUSCULAR HEMOGLOBIN 27.3 pg (27.0-31.0); MEAN CORPUSCULAR HGB CONC 32.6 g/dL (32.0-36.0); MEAN CORPUSCULAR VOLUME 83.8 fL (81.0-99.0); MONOCYTES # (AUTO) 0.8 10^3/uL (0.0-1.0); MONOCYTES % (AUTO) 7.9 %; NEUTROPHILS # (AUTO) 5.2 10^3/uL (1.5-6.6); NEUTROPHILS % (AUTO) 53.8 %; PLT - PLATELET COUNT 222 10^3/uL (130-450); RED BLOOD COUNT 5.18 10^6/uL (4.20-5.40); WHITE BLOOD COUNT 9.7 x10^3/uL (4.8-10.8)
[2017-09-16 06:06] LABS: CHOL/HDL RATIO 3.7 (<4.4); CHOLESTEROL 237 mg/dL; HDL CHOLESTEROL 64 mg/dL; LDL CHOLESTEROL,CALCULATED 162 mg/dL; LDL/HDL RATIO 2.5 (<4.4); VLDL CHOLESTEROL 11 mg/dL
[2017-09-16 06:11] LABS: ALBUMIN 3.9 g/dL (3.2-5.5); ALBUMIN/GLOBULIN RATIO 1.5 (1.0-2.2); BILIRUBIN,TOTAL 0.7 mg/dL (0.2-1.0); CALCIUM 8.9 mg/dL (8.5-10.3); CREATININE 0.6 mg/dL (0.4-1.0); TOTAL PROTEIN 6.5 g/dL (6.7-8.2)
[2017-09-16] MEDS: FAMOTIDINE 20 MG TABLET PO SCH (09:02)
[2017-09-16] MEDS: ENOXAPARIN 40 MG/0.4 ML SYRINGE SUBQ SCH (09:02)
[2017-09-16] MEDS: ASPIRIN 325 MG TABLET PO SCH (09:02)
[2017-09-16] MEDS: CIPROFLOXACIN 250 MG TABLET PO SCH (09:02)
[2017-09-16] MEDS: POLYETHYLENE GLYCOL 3350 17 GM PACKET PO SCH (09:03)
[2017-09-16] MEDS: SODIUM CHLORIDE 0.9% 1,000 ML IV SCH (09:13)
--- NOTE | 2017-09-16 12:07 | PROVIDER PROGRESS NOTE ---
Subjective - Prog Note Date Prog Note Date: 09/16/17 Prog Note Time: 12:06 - Subjective Pt reports feeling: Improved Subjective: Amada believes that she is making good progress and states, my balance is improved and I am practicing my swallowing techniques. She denies SOB, chest pain, N/V or a new cough. Current Medications - Current Medications Current Medications: Active Medications Acetaminophen (Tylenol) 650 mg PO Q4HR PRN PRN Reason: Pain 1 to 4 Last Admin: 09/13/17 21:33 Dose: 162.5 mg Aspirin (Shar) 325 mg PO DAILYWM [facility] Last Admin: 09/16/17 09:02 Dose: 325 mg Atorvastatin Calcium (Lipitor) 40 mg PO QPM [facility] Last Admin: 09/15/17 20:25 Dose: 40 mg Enoxaparin Sodium (Lovenox) 40 mg SUBQ DAILY [facility] Last Admin: 09/16/17 09:02 Dose: 40 mg Famotidine (Pepcid) 20 mg PO DAILY [facility] Last Admin: 09/16/17 09:02 Dose: 20 mg Meclizine HCl (Antivert) 12.5 mg PO Q6HR PRN PRN Reason: Dizziness Last Admin: 09/14/17 08:39 Dose: 12.5 mg Metoclopramide HCl (Reglan Inj) 5 mg IVP Q6HR PRN PRN Reason: Nausea / Vomiting Ondansetron HCl (Zofran Inj) 4 mg IVP Q6HR PRN PRN Reason: Nausea / Vomiting Last Admin: 09/14/17 15:54 Dose: 4 mg Polyethylene Glycol (Miralax) 17 gm PO DAILY [facility] Last Admin: 09/16/17 09:03 Dose: Not Given Sodium Chloride (Normal Saline Flush 0.9%) 10 ml IVP PRN PRN PRN Reason: NEEDED PER PROVIDER ORDERS Last Admin: 09/13/17 18:02 Dose: 10 ml Sodium Chloride (Normal Saline Flush 0.9%) 10 ml IVP 0100,0900,1700 [facility] Last Admin: 09/16/17 09:03 Dose: Not Given Trimethoprim/Sulfamethoxazole (Bactrim Ds 800/160) 1 tab PO BID [facility] Zolpidem Tartrate (Ambien) 5 mg PO QPM PRN PRN Reason: Insomnia No Known Home Medications [No Known Home Medications] 09/14/17 Objective - Vital Signs/Intake & Output Reviewed Vital Signs: Yes Vital Signs: Vital Signs x48h Temp Pulse Resp BP Pulse Ox 09/16/17 07:52 36.7 C 86 18 176/96 H 95 Intake & Output: Intake & Output 09/13/17 09/14/17 09/15/17 09/16/17 23:59 23:59 23:59 23:59 Intake Total 1692.295 3169.25 Balance 9750.270 8245.25 - Objective General Appearance: positive: No acute distress, Alert Eyes Bilateral: positive: Normal inspection ENT: positive: ENT inspection nml, No signs of dehydration Neck: positive: Nml inspection, Thyroid nml, No JVD - Lab Results Fish Bones: 09/17/17 06:00 09/17/17 06:00 Other Labs: Lab Results x24hrs 09/16/17 09/16/17 09/16/17 Range/Units 05:04 05:04 05:04 WBC 9.7 (4.8-10.8) x10^3/uL RBC 5.18 (4.20-5.40) 10^6/uL Hgb 14.1 (12.0-16.0) g/dL Hct 43.4 (37.0-47.0) % MCV 83.8 (81.0-99.0) fL MCH 27.3 (27.0-31.0) pg MCHC 32.6 (32.0-36.0) g/dL RDW 15.0 (12.0-15.0) % Plt Count 222 (130-450) 10^3/uL MPV 9.0 (7.9-10.8) fL Neut # 5.2 (1.5-6.6) 10^3/uL Lymph # 3.6 H (1.5-3.5) 10^3/uL [place] # 0.8 (0.0-1.0) 10^3/uL Eos # 0.1 (0.0-0.7) 10^3/uL Baso # 0.1 (0.0-0.1) 10^3/uL Absolute Nucleated RBC 0.01 x10^3/uL Nucleated RBC % 0.1 /100WBC Sodium 140 (135-145) mmol/L Potassium 3.4 L (3.5-5.0) mmol/L Chloride 107 (101-111) mmol/L Carbon Dioxide 25 (21-32) mmol/L Anion Gap 8.0 (6-13) BUN 10 (6-20) mg/dL Creatinine 0.6 (0.4-1.0) mg/dL Estimated GFR (MDRD) 100 (>89) Glucose 100 (70-100) mg/dL Calcium 8.9 (8.5-10.3) mg/dL Total Bilirubin 0.7 (0.2-1.0) mg/dL AST 17 (10-42) IU/L ALT 16 (10-60) IU/L Alkaline Phosphatase 66 (42-121) IU/L Total Protein 6.5 L (6.7-8.2) g/dL Albumin 3.9 (3.2-5.5) g/dL Globulin 2.6 (2.1-4.2) g/dL Albumin/Globulin Ratio 1.5 (1.0-2.2) Triglycerides 56 ( - 149) mg/dL Cholesterol 237 H ( - 199) mg/dL LDL Cholesterol, Calc 162 H ( - 129) mg/dL VLDL Cholesterol 11 mg/dL HDL Cholesterol 64 (60 - ) mg/dL LDL/HDL Ratio 2.5 (<4.4) Cholesterol/HDL Ratio 3.7 (<4.4) ABX Reporting Has patient been on IV antibiotics over the past 48 hours?: Yes Assessment/Plan - Problem List (1) CVA (cerebral vascular accident) Impression: A acute to subacute left lateral medulla brainstem injury has been confirmed by a brain MRI. These results were relayed to the patient. Plan: Continue CVA protocol. (2) Unsteady gait Impression: The patient presented to the ED with a left sided drift while ambulating that has slowly improved. She underwent a PT evaluation who recommends a short SNF rehab verses outpatient rehab. The patient refused senior care, even after learning of her official CVA. Plan: Continue fall precautions and PT sessions. (3) Facial pain, acute Impression: The patient admits to having left facial pain that involved her left ear. This was very evident at home, and has now subsided. A performed an HEENT exam which revealed the patient's inner ear as being clogged. All other features appeared normal. An explanation of this is in the acute CVA setting this was likely an associated disturbance linked to brain injury. Plan: prescribed nasal sprays for discomfort and for chronic sinusitis. (4) Hyperlipidemia Impression: Lipid panel revealed chronic hyperlipidemia, and based on new risk factors of this event, age, and a history of HTN, the patient should plan on life long therapy. A total cholesterol level was elevated at 237. Plan: Continue statin and ASA therapy. (5) Hypertension Impression: Blood pressure remains elevated at 165/92 and we will continue to allow this in light of acute CVA and extra pressure that the newly damaged brain tissue needs to prevent further injury. The patient admits to "not needing" medications as an out patient and she was attempting to make life style modifications in the mean time. Plan: Start antihypertensive based on up coming echo results.
[2017-09-16] MEDS: SULFAMETH/TRIMETH DS 800/160 MG TABLET PO SCH ×2 (14:29→21:05)
[2017-09-16] MEDS: ATORVASTATIN 40 MG TABLET PO SCH (21:05)
[2017-09-17] MEDS: SODIUM CHLORIDE FLUSH 0.9% 10 ML SYRINGE IVP SCH ×2 (00:49→09:03)
[2017-09-17 06:28] LABS: BASOPHILS # (AUTO) 0.1 10^3/uL (0.0-0.1); BASOPHILS % (AUTO) 1.2 %; EOSINOPHILS # (AUTO) 0.2 10^3/uL (0.0-0.7); EOSINOPHILS % (AUTO) 1.9 %; LYMPHOCYTES # (AUTO) 2.5 10^3/uL (1.5-3.5); LYMPHOCYTES % (AUTO) 26.6 %; MEAN CORPUSCULAR HEMOGLOBIN 27.1 pg (27.0-31.0); MEAN CORPUSCULAR HGB CONC 32.4 g/dL (32.0-36.0); MEAN CORPUSCULAR VOLUME 83.5 fL (81.0-99.0); MEAN PLATELET VOLUME 8.8 fL (7.9-10.8); MONOCYTES # (AUTO) 0.8 10^3/uL (0.0-1.0); MONOCYTES % (AUTO) 8.3 %; NEUTROPHILS # (AUTO) 5.9 10^3/uL (1.5-6.6); PLT - PLATELET COUNT 237 10^3/uL (130-450); RED BLOOD COUNT 5.53 10^6/uL (4.20-5.40); RED CELL DISTRIBUTION WIDTH 14.8 % (12.0-15.0); WHITE BLOOD COUNT 9.5 x10^3/uL (4.8-10.8)
[2017-09-17 06:43] LABS: ALBUMIN 3.9 g/dL (3.2-5.5); ALBUMIN/GLOBULIN RATIO 1.3 (1.0-2.2); BILIRUBIN,TOTAL 0.7 mg/dL (0.2-1.0); CALCIUM 9.1 mg/dL (8.5-10.3); CREATININE 0.8 mg/dL (0.4-1.0); TOTAL PROTEIN 6.9 g/dL (6.7-8.2)
[2017-09-17 07:01] LABS: HB2 TOTAL 17.5 g/dL; HEMOGLOBIN A1C 0.68 g/dL; HEMOGLOBIN A1C % 5.7 % (4.6-6.2)
[2017-09-17 08:25] VITALS: BP 151/95
[2017-09-17] MEDS: ASPIRIN 325 MG TABLET PO SCH (09:00)
[2017-09-17] MEDS: FAMOTIDINE 20 MG TABLET PO SCH (09:00)
[2017-09-17] MEDS: SULFAMETH/TRIMETH DS 800/160 MG TABLET PO SCH (09:01)
[2017-09-17] MEDS: ENOXAPARIN 40 MG/0.4 ML SYRINGE SUBQ SCH (09:02)
[2017-09-17] MEDS: POLYETHYLENE GLYCOL 3350 17 GM PACKET PO SCH (09:03)
[2017-09-17] MEDS ORDERED: LISINOPRIL 5 MG TABLET PO SCH (10:12)
--- NOTE | 2017-09-17 10:19 | Discharge Plan ---
Discharge Plan Disposition: 01 Home, Self Care Condition: Good Prescriptions: Amoxicillin/Potassium Clav [Amox Tr-K Clv 875-125 mg Tab] 1 each PO BID 10 Days #20 tablet Aspirin EC [Ecotrin] 325 mg PO DAILY #30 tablet Atorvastatin Calcium 40 mg PO DAILY #30 tablet Lisinopril 5 mg PO DAILY #30 tablet Saccharomyces Boulardii [Florastor] 250 mg PO BID 20 Days #40 capsule Diet: Regular (follow new swallowing techniques, thickened liquids, mechanical soft foods.) Activity Restrictions: Activity as Tolerated Shower Restrictions: No Driving Restrictions: Yes Assistance Devices: Walker Weight Bearing: Full Weight Additional Instructions or Follow Up instructions: You were admitted for left facial pain, left ear pain, dizziness and imbalance while walking. As per brain MRI imaging results, you have suffered a left lateral medulla stroke (CVA) that explains all of your symptoms including the facial pain, slight facial droop, the swallowing problems, and the imbalance while walking. It is recommended that you attend rehabilitation through [place] [facility] where you will have neurological vistibular rehab specific to this type of stroke. [facility] neurology was contacted in the ED and one day prior to discharge for their professional neurology focused recommendations. You should continue a statin medication and a full dose aspirin for the rest of your life. You also need to keep very good control of your blood pressure. You underwent a swallowing evaluation who recommends thickened liquids and mechanical soft (heavy and wet) foods at home. You were found to have a UTI, so based on sensitivity testing, please continue to take the oral antibiotics at home. Please see your PCP within one week. Ask for help and rest when you are tired. Follow-Up Care: Outpatient Rehab - PT (Att[place] [facility] [place] further vistibular (neuro) focused rehab services.), Outpatient Rehab - OT, Outpatient Rehab - ST No Smoking: If you smoke, Please STOP! Call for help. Follow-up with: Irene Nagel PA-C [Primary Care Provider] -
--- NOTE | 2017-09-17 10:46 | DISCHARGE SUMMARY ---
Discharge Summary Admit Date: 09/13/17 Discharge Date: 09/17/17 Discharging Provider: ELENA Coelho Primary Care Provider: Irene Nagel Code Status: Attempt Resuscitation Condition at Discharge: Good Discharge Disposition: 01 Home, Self Care - DIAGNOSES Admission Diagnoses: Benign paroxysmal vertigo, unspecified ear (H81.10) Discharge Diagnoses with Status of Each Condition: Vertigo, benign paroxysmal (H81.10)-improved. Unsteady gait (R26.81) -improved. CVA (cerebral vascular accident) (I63.9) -new on this admission, therapy recommended. Hypertension (I10) -chronic, stable. Hyperlipidemia- chronic, stable, new medication prescribed. Facial pain- resolved. E. coli UTI (urinary tract infection) (N39.0)- new on this admit, medications to continue. Systolic CHF class II- new on this admit, care to continue. - HPI History of Present Illness: Amada Gibson is 66-yrs-old female without significant PMH, who presented ER with complaints of sudden onset dizziness, noticed a drift to the left side, ongoing nausea and vomiting. Patient reported the onset at about 5:30 am today. She suddenly felt profoundly dizzy. Patient reports that she was propelled to the left side, unbalanced and leaned to left side when she attempted to walk. She then developed nausea and vomiting that was ongoing. She also reported that she had some odd sensation on the left side of her face. She denies any bilateral upper and lower extremities weakness, abnormal sensation, denies any difficult speech, denies any difficult incoordination, and denies headache, denies hearing loss or vision changing. No chest pain, shortness of breath, fevers, chills, cough, recent travel are reported from pt. CT of head, CTA of neck and brain were unremarkable. ER provider called [facility], Neurologist Dr. Jenn STANLEY was consulted. The neurologist recommended head impulse test which was performed in ER. It was positive which indicated a vestibular etiology vs a central etiology. Lab test in ER are unremarkable. - HOSPITAL COURSE Hospital Course: The following diagnoses were prevalent during this hospital stay: (1) CVA (cerebral vascular accident) A acute to subacute left lateral medulla brainstem injury has been confirmed by a brain MRI. These results were relayed to the patient. The patient underwent a bedside swallow evaluation and was recommended to follow a mechanical ground food with thickened liquids. Later in her stay, the speech therapist changed her recommendation to now include thin liquids. The patient admits to some difficulty with swallowing that has slowly improved since the time of admission. At the time of discharge, the patient needed a short course of antibiotics for her UTI, so a liquid form was sent to the pharmacy as per patient request. As per CVA current recommendations, she will be on a life long statin and ASA. (2) Unsteady gait The patient presented to the ED with a left sided drift while ambulating that has slowly improved. She underwent a PT evaluation who recommends a short SNF rehab verses outpatient rehab. The patient refused care home, even after learning of her official CVA. (3) Facial pain, acute The patient admits to having left facial pain that involved her left ear. This was very evident at home, and has now subsided. A performed an HEENT exam which revealed the patient's inner ear as being clogged. All other features appeared normal. An explanation of this is in the acute CVA setting this was likely an associated disturbance linked to brain injury. The patient was prescribed nasal sprays for discomfort and for chronic sinusitis. (4) Hyperlipidemia Lipid panel revealed chronic hyperlipidemia, and based on new risk factors of this event, age, and a history of HTN, the patient should plan on life long therapy. A total cholesterol level was elevated at 237. New prescriptions were sent to the pharmacy for ongoing use. (5) Hypertension Blood pressure remains elevated at 165/92 and we will continue to allow this in light of acute CVA and extra pressure that the newly damaged brain tissue needs to prevent further injury. The patient admits to "not needing" medications as an out patient and she was attempting to make life style modifications in the mean time. (6) E. coli UTI The patient had a UA upon presentation to the ED and final culture and sensitivities resulted. She was prescribed IV antibiotics during her inpatient stay that was changed to a liquid oral form as per her request. (7) Systolic CHF; Class II The patient underwent a bedside echocardiogram which showed impaired systolic function with a reduced EF of 45%. A beta andrea was not started on this admission due to the patient's level of acceptance with all the changes that she was faced with. She was started on an CHE-Lisinopril as per current CHF medical management. A good choice would be Coreg in light of the patient already being slightly bradycardic. Disposition: The patient was discharged home with in stable condition via private car. She had new prescriptions waiting at the pharmacy and would follow up with her PCP. - ALLERGIES Allergies/Adverse Reactions: Allergies Allergy/AdvReac Type Severity Reaction Status Date / Time codeine AdvReac Nausea Verified 08/11/17 13:13 meperidine [From Demerol] AdvReac Nausea Verified 08/11/17 13:13 promethazine [From Phenergan] AdvReac Nausea Verified 08/11/17 13:13 - MEDICATIONS Home Medications: Ambulatory Orders Medication Instructions Recorded Confirmed Amoxicillin/Potassium Clav [Amox 1 each PO BID 10 Days #20 tablet 09/17/17 Tr-K Clv 875-125 mg Tab] Amoxicillin/Potassium Clav 10 ml PO BID 10 Days #40 susp.recon 09/17/17 [Amox-Clav 400-57 mg/5 ml Susp] Aspirin EC [Ecotrin] 325 mg PO DAILY #30 tablet 09/17/17 Atorvastatin Calcium 40 mg PO DAILY #30 tablet 09/17/17 Lisinopril 5 mg PO DAILY #30 tablet 09/17/17 Saccharomyces Boulardii [Florastor] 250 mg PO BID 20 Days #40 capsule 09/17/17 - PHYSICAL EXAM AT DISCHARGE General Appearance: positive: No acute distress, Alert Eyes Bilateral: positive: Normal inspection, PERRL ENT: positive: ENT inspection nml, Pharynx nml, No signs of dehydration Neck: positive: Nml inspection, Thyroid nml, No JVD, Trachea midline Respiratory: positive: Chest non-tender, No respiratory distress, Breath sounds nml Cardiovascular: positive: Regular rate & rhythm, No gallop Peripheral Pulses: positive: 1+ Abdomen: positive: Non-tender, No organomegaly, Nml bowel sounds, No distention , Other (rounded, soft) Back: positive: Nml inspection Skin: positive: No rash, Warm, Dry Extremities: positive: Non-tender, Full ROM, Pedal edema (chronic BLE) Neurologic/Psychiatric: positive: Oriented x3, CN's nml (2-12), Motor nml, Sensation nml, Facial droop (very slight left cheek, eye, + sensation.) Reflexes: Bicep (R): 3+, Bicep (L): 3+, Ankle (R): 3+, Ankle (L): 3+ - LABS Result Diagrams: 09/17/17 06:00 09/17/17 06:00 - DIAGNOSTIC IMAGING Diagnostic Imaging Results: Prelim report reviewed, Final report reviewed Diagnostic Imaging Results Comments: EXAM: CT HEAD EXAM DATE: 09/13/2017 07:48 AM. CLINICAL HISTORY: Propelling vertigo left. Left-sided weakness. COMPARISON: None. TECHNIQUE: Multiaxial CT images were obtained from the foramen magnum to the vertex. Reformats: Coronal. IV contrast: None. In accordance with CT protocol optimization, one or more of the following dose reduction techniques were utilized for this exam: automated exposure control, adjustment of mA and/or KV based on patient size, or use of iterative reconstructive technique. FINDINGS: Parenchyma: No intraparenchymal hemorrhage. No evidence of mass, midline shift, or CT findings of acute infarction. Enriquez-white differentiation is distinct. Diffuse chronic microangiopathic white matter changes are evident. Extraaxial Spaces: No subdural or epidural collections identified. Ventricles: The ventricles and cortical sulci are enlarged, consistent with age- related tissue loss. Sinuses and orbits: Imaged paranasal sinuses, orbits, and mastoids show no significant abnormality. Bones: No evidence of fracture or calvarial defect. Other: None. IMPRESSION: Generalized age-related cortical atrophic changes without evidence of acute intracranial abnormality. CT SCAN OF THE HEAD WITH CONTRAST. EXAM DATE: 09/13/2017 09:53 AM CLINICAL HISTORY: 66-year-old woman with propelling vertigo to the left and left -sided weakness. COMPARISON: Noncontrast head CT done immediately before. TECHNIQUE: - CT Scan Head: Using a multidetector scanner, axial images were acquired from the foramen magnum to the skull vertex following contrast administration. - CT Angiogram: Using a multidetector scanner, high-resolution axial images were acquired from the skull base through vertex following rapid infusion of intravenous contrast. Reformats: Multiplanar MIP reformats were reconstructed. Nascet criteria used for stenosis measurement. IV Contrast: 100 cc Isovue-300. In accordance with CT protocol optimization, one or more of the following dose reduction techniques were utilized for this exam: automated exposure control, adjustment of mA and/or KV based on patient size, or use of iterative reconstructive technique. FINDINGS: CTA HEAD: RIGHT: - Visualized Internal Carotid: Patent without significant stenosis or aneurysm. There is trace atherosclerotic plaque along the siphon. - Anterior Cerebral: Patent without significant stenosis or aneurysm. - Middle Cerebral: Patent without significant stenosis or aneurysm. - Posterior Cerebral: Patent without significant stenosis or aneurysm. - Posterior Communicating: Patent. No aneurysm. - Visualized Vertebral: Patent without significant stenosis or dissection. LEFT: - Visualized Internal Carotid: Patent without significant stenosis or aneurysm. There is minimal atherosclerotic plaque along the siphon. - Anterior Cerebral: Patent without significant stenosis or aneurysm. - Middle Cerebral: Patent without significant stenosis or aneurysm. - Posterior Cerebral: Patent without significant stenosis or aneurysm. - Posterior Communicating: Not well seen. - Visualized Vertebral: Patent without significant stenosis or dissection. CENTRAL: - Anterior Communicating: Patent. No aneurysm. - Basilar: Patent without significant stenosis, dissection, or aneurysm. Dural Venous Sinuses and Major Central Veins: Patent. POSTCONTRAST HEAD: No abnormal enhancement. Prominent developmental venous anomaly is incidentally noted in the anterior left frontal lobe, a normal variant. IMPRESSION: 1. Normal CTA of the head. No large vessel occlusion, significant vascular stenosis, or aneurysm. CT ANGIOGRAM NECK EXAM DATE: 09/13/2017 09:53 AM. CLINICAL HISTORY: Propelling vertigo left. COMPARISON: 66-year-old woman with left-sided weakness and propelling vertigo to the left. TECHNIQUE: Routine axial helical imaging was performed from the skull base through the aortic arch. Reconstructions: Routine multiplanar 3D MIP reconstructions. IV Contrast: 100 cc Isovue-300. Evaluation of arterial stenosis is based on a NASCET method of measurement. In accordance with CT protocol optimization, one or more of the following dose reduction techniques were utilized for this exam: automated exposure control, adjustment of mA and/or KV based on patient size, or use of iterative reconstructive technique. FINDINGS: RIGHT: - Common and Internal Carotid: Patent without signficant stenosis. There is trace calcified atherosclerotic plaque at the bifurcation and along the siphon. Stenosis by NASCET criteria: 0%. No evidence of dissection. No evidence of aneurysm along intracranial ICA. - External Carotid: Unremarkable. - Vertebral: Patent without significant stenosis. No evidence of dissection. LEFT: - Common and Internal Carotid: Patent without signficant stenosis. No evidence of atherosclerotic plaque. Stenosis by NASCET criteria: 0%. No evidence of dissection. No evidence of aneurysm along intracranial ICA. - External Carotid: Unremarkable. - Vertebral: Patent without significant stenosis. No evidence of dissection. SOFT TISSUES AND BONES: Visualized soft tissues are unremarkable. Lung apices are clear. No evidence of acute fracture or malalignment of the cervical spine, but degenerative changes are present. IMPRESSION: 1. Normal CTA of the neck. Carotid and vertebral arteries are patent without significant atherosclerotic disease, stenosis, or dissection. EXAM: MRI BRAIN WITHOUT CONTRAST EXAM DATE: 09/15/2017 11:48 AM. CLINICAL HISTORY: Acute dizziness. Nausea and vomiting. Unbalanced, leaning to the left. Acute stroke symptoms. COMPARISON: No prior MRI. TECHNIQUE: Multiplanar, multisequence T1-weighted and fluid-sensitive MR sequences of the brain were performed. Sequences optimized for routine evaluation. Other: None. IV Contrast: None. FINDINGS: Patchy and confluent edema is seen in the left lateral medulla. The lesion is about 6 x 10 mm transverse and within it is patchy restricted diffusion. Findings are consistent with acute to subacute ischemic infarct of the left lateral medulla. No other MRI evidence for acute ischemic infarct. No acute hemorrhage. Chronic microhemorrhage versus punctate calcification or cavernous malformation where there is T2 hyperintensity in the upper medial left frontal lobe. Normal brain volume for age. No hydrocephalus, mass effect or midline shift. Mild to moderate nonspecific multifocal cerebral white matter disease. These findings may be secondary to chronic small vessel ischemic white matter disease though the usual gamut of white matter conditions may be considered. The nasal septum is deviated to the left. There is mild multifocal paranasal sinus mucosal thickening. No focal pathologic-appearing marrow signal changes in the skull or clivus. The high-resolution axial T2 weighted sequence of the internal auditory canals shows no evidence for space-occupying mass or nodule, the canalicular and cisternal segments of the seventh and eighth cranial nerves appear unremarkable. IMPRESSION: 1. 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 2. 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 3. Nonspecific multifocal cerebral white matter disease, potentially contributed to by chronic microangiopathy. EXAM: FL/MBS MODIFIED BARIUM SWALLOW: 09/15/2017 CLINICAL INDICATION: Stroke, possible aspiration. FINDINGS: Various consistencies of barium were prepared and administered in conjunction with Speech Pathology. There was no evidence of penetration or aspiration with any administered consistency. Please also refer to full report from Speech Pathology. IMPRESSION: NO EVIDENCE OF PENETRATION OR ASPIRATION. FLUOROSCOPY TIME: 1 minute, 5 seconds; 1 spot image obtained (cinefluoroscopy recorded). ECHOCARDIOGRAM 09/15/17-FINAL 1. The LV size is normal. Mild concentric LV hypertrophy. Overall LV systolic function is mildly impaired with an EF of 45-50%. Paradoxical septal motion consistent with a left BBB. Basal and mid septal wall segment akinesis is noted. 2. The RV is normal in size and function. 3. There is mild mitral regurg. 4. A bubble study was negative for an atrial shunt. - FOLLOW UP Follow Up: Disposition: 01 Home, Self Care Condition: Good Prescriptions: Amoxicillin/Potassium Clav [Amox Tr-K Clv 875-125 mg Tab] 1 each PO BID 10 Days #20 tablet Aspirin EC [Ecotrin] 325 mg PO DAILY #30 tablet Atorvastatin Calcium 40 mg PO DAILY #30 tablet Lisinopril 5 mg PO DAILY #30 tablet Saccharomyces Boulardii [Florastor] 250 mg PO BID 20 Days #40 capsule Diet: Regular (follow new swallowing techniques, thickened liquids, mechanical soft foods.) Activity Restrictions: Activity as Tolerated Shower Restrictions: No Driving Restrictions: Yes Assistance Devices: Walker Weight Bearing: Full Weight Additional Instructions or Follow Up instructions: You were admitted for left facial pain, left ear pain, dizziness and imbalance while walking. As per brain MRI imaging results, you have suffered a left lateral medulla stroke (CVA) that explains all of your symptoms including the facial pain, slight facial droop, the swallowing problems, and the imbalance while walking. It is recommended that you attend rehabilitation through our [facility] clinic where you will have neurological vistibular rehab specific to this type of stroke. [facility] neurology was contacted in the ED and one day prior to discharge for their professional neurology focused recommendations. You should continue a statin medication and a full dose aspirin for the rest of your life. You also need to keep very good control of your blood pressure. You underwent a swallowing evaluation who recommends thickened liquids and mechanical soft (heavy and wet) foods at home. You were found to have a UTI, so based on sensitivity testing, please continue to take the oral antibiotics at home. Please see your PCP within one week. Ask for help and rest when you are tired. - TIME SPENT Time Spent in Discharge (Minutes): 60
== END 2017-09-17 11:43 | disposition home or self-care (01) | DRG 65 ==
LOC: EDUNIT# → ED 07:25 → OBS 12:51 → OBSVTOIN 09-15 13:20 → MS2 09-15 14:52
PROVIDERS: ADMIT Nurse Practitioner Gerontology; ATTEND Nurse Practitioner
DX: I63.9 Cerebral infarction, unspecified (principal); H83.02 Labyrinthitis, left ear; N39.0 Urinary tract infection, site not specified; H55.00 Unspecified nystagmus; R40.2412 Glasgow coma scale score 13-15, at arrival to emergency department; I50.20 Unspecified systolic (congestive) heart failure; I11.0 Hypertensive heart disease with heart failure; R29.700 NIHSS score 0; H81.10 Benign paroxysmal vertigo, unspecified ear; R26.81 Unsteadiness on feet; R20.9 Unspecified disturbances of skin sensation; R13.10 Dysphagia, unspecified; R29.810 Facial weakness; E78.5 Hyperlipidemia, unspecified; B96.20 Unspecified Escherichia coli [E. coli] as the cause of diseases classified elsewhere; J32.9 Chronic sinusitis, unspecified
CPT/HCPCS: 36415; 70450; 70496; 70498; 70551; 74230; 80053; 80061; 81001; 81003; 83036; 83690; 83721; 83735; 84443; 84484; 85025; 87077; 87086; 93005; 93306; 96361; 96365; 96366; 96372; 96374; 96375; 96376; 99284; 99285

== ENCOUNTER 2017-10-28 08:15 | Outpatient (CLI) | payer MEDICARE ==
[2017-10-28 13:21] LABS: ALT ALANINE AMINOTRANSFERASE 37 IU/L (10-60); AST ASPARTATE AMINOTRANSFERASE 32 IU/L (10-42); LDL CHOLESTEROL,DIRECT 78 mg/dL
== END 2017-10-28 08:16 | disposition home or self-care (01) ==
LOC: LAB.R 08:15
PROVIDERS: ATTEND Physician Assistant Medical
DX: E78.2 Mixed hyperlipidemia (principal); Z79.899 Other long term (current) drug therapy
CPT/HCPCS: 83721; 84450; 84460

== ENCOUNTER 2017-11-05 14:13 | Outpatient (CLI) | payer MEDICARE ==
--- NOTE | 2017-11-13 10:23 | DEXA Report ---
Procedure Date: 11/05/2017 Accession Number: [id number] / [id number] Procedure: DEX - Dexa Spine and/or Hip CPT Code: FULL RESULT: EXAM: Dexa Spine and/or Hip DATE: 11/05/2017 2:55 PM CLINICAL HISTORY: OSTEOPENIA, POSTMENOPAUSAL TECHNIQUE: Dual energy x-ray absorptiometry (DXA) was performed on a [employer] System. Regions measured are the AP Spine, femoral neck, and if needed forearm. COMPARISON: 11/02/2015 In accordance with the International Society for Clinical Densitometry (ISCD) guidelines, data from previous exams may be reanalyzed using current recommendations and techniques. This is done to allow a more accurate basis for comparison with the current study. FINDINGS: The data for the lumbar spine is as follows: BMD (g/cm/cm) T-SCORE Z-SCORE REGION L1 0.997 -1.1 0.2 L2 1.180 -0.2 1.1 L3 1.164 -0.3 1.0 L4 1.249 0.4 1.7 TOTAL 1.157 -0.2 1.1 NOTE: All evaluable vertebrae are used for classification The data for the hip is as follows: BMD (g/cm/cm) T-SCORE Z-SCORE REGION Neck 0.760 -2.0 -0.7 TOTAL 0.881 -1.0 0.0 NOTE: The femoral neck or total proximal femur, whichever is lowest, is used for classification. DXA RESULTS SUMMARY: Spine SCAN DATE AGE BMD BMD CHANGE BMD CHANGE VS BASELINE PREVIOUS 11/05[age] 1.157 -0.025 -2.1 11/02/2015 [age] 1.182 -- -- * Denotes significant change at the 95% confidence level. Denotes dissimilar scan types or analysis methods. DXA RESULTS SUMMARY: Hip SCAN DATE AGE BMD BMD CHANGE BMD CHANGE VS BASELINE PREVIOUS 11/05/2017 [age] 0.881 0.029 3.4 11/02/2015 64.9 0[age]852 -- -- * Denotes significant change at the 95% confidence level. Denotes dissimilar scan types or analysis methods. IMPRESSION: THE WHO CLASSIFICATION BASED ON THE INTERNATIONAL REFERENCE STANDARD IS OSTEOPENIA. THE FRACTURE RISK IS INCREASED NO STATISTICALLY SIGNIFICANT INTERVAL CHANGE FROM 11/02/2015.. RECOMMENDATION: Patients with diagnosis of osteoporosis or osteopenia should have regular bone mineral density assessment. For those eligible for Medicare, routine testing is allowed once every 2 years. Testing frequency can be increased for patients who have rapidly progressing disease or for those who are receiving medical therapy to restore bone mass. COMMENT: World Health Organization (WHO) definitions for osteoporosis and osteopenia: NORMAL BMD: T-score at -1.0 or higher, fracture risk is low OSTEOPENIA BMD: T-score between -1.0 and -2.5, fracture risk is increased. OSTEOPOROSIS BMD: T-score at -2.5 or lower, fracture risk is high. National Osteoporosis Foundation recommends: 1. Obtain adequate dietary calcium (at least 1200 mg per day) and vitamin D (400-800 international units per day). 2. Participate, as appropriate, in regular weightbearing and muscle-strengthening exercise. 3. Avoid tobacco use and reduce alcohol and caffeine intake. 4. For more detailed information see the website at www.NOF.org.
== END 2017-11-05 14:14 | disposition home or self-care (01) ==
LOC: DI 14:13
PROVIDERS: ATTEND Physician Assistant Medical
DX: M85.88 Other specified disorders of bone density and structure, other site (principal)
CPT/HCPCS: 77080

== ENCOUNTER 2017-11-05 14:14 | Outpatient (CLI) | payer MEDICARE ==
--- NOTE | 2017-11-06 09:57 | Mammography Report ---
Procedure Date: 11/05/2017 Accession Number: [id number] / [id number] Procedure: AURELIA - Screening Mammo Dig Bilat CPT Code: FULL RESULT: EXAM: Screening Mammo Dig Bilat DATE: 11/05/2017 3:08 PM CLINICAL HISTORY: 66-year-old for screening TECHNIQUE: Bilateral CC, laterally exaggerated CC, MLO views were obtained. COMPARISON: 11/08/2015, 11/18/2013, 10/07/2012 FINDINGS: The breasts demonstrate heterogeneously dense fibroglandular parenchyma bilaterally. A few coarse, typically benign calcifications are present. No suspicious masses, clustered microcalcifications, or regions of architectural distortion are identified. IMPRESSION: Benign findings RECOMMENDATION: Routine annual screening unless otherwise clinically indicated. BIRADS CATEGORY 2: Benign findings STANDARD QUALIFYING STATEMENTS: 1. This examination was reviewed with the aid of Computer-Aided Detection (CAD). 2. A negative or benign imaging report should not delay biopsy if clinically suspicious findings are present. Consider surgical consultation if warrented. More than 5% of cancers are not identified by imaging. 3. Dense breasts may obscure an underlying neoplasm.
== END 2017-11-05 14:15 | disposition home or self-care (01) ==
LOC: DI 14:14
PROVIDERS: ATTEND Physician Assistant Medical
DX: Z12.31 Encounter for screening mammogram for malignant neoplasm of breast (principal)
CPT/HCPCS: 77067

== ENCOUNTER 2018-04-13 08:00 | Outpatient (CLI) | payer MEDICARE ==
[2018-04-13 15:45] LABS: BASOPHILS % (AUTO) 0.7 %; EOSINOPHILS # (AUTO) 0.2 10^3/uL (0.0-0.7); EOSINOPHILS % (AUTO) 3.8 %; HGB - HEMOGLOBIN 14.4 g/dL (12.0-16.0); LYMPHOCYTES # (AUTO) 1.6 10^3/uL (1.5-3.5); LYMPHOCYTES % (AUTO) 28.3 %; MEAN CORPUSCULAR HEMOGLOBIN 27.3 pg (27.0-31.0); MEAN CORPUSCULAR HGB CONC 32.4 g/dL (32.0-36.0); MEAN PLATELET VOLUME 9.6 fL (7.9-10.8); MONOCYTES # (AUTO) 0.4 10^3/uL (0.0-1.0); MONOCYTES % (AUTO) 7.1 %; NEUTROPHILS # (AUTO) 3.4 10^3/uL (1.5-6.6); NEUTROPHILS % (AUTO) 60.1 %; PLT - PLATELET COUNT 236 10^3/uL (130-450); RED BLOOD COUNT 5.28 10^6/uL (4.20-5.40); RED CELL DISTRIBUTION WIDTH 14.5 % (12.0-15.0); WHITE BLOOD COUNT 5.6 x10^3/uL (4.8-10.8)
[2018-04-13 16:17] LABS: ALBUMIN 4.3 g/dL (3.2-5.5); ALBUMIN/GLOBULIN RATIO 1.5 (1.0-2.2); ALKALINE PHOSPHATASE 100 IU/L (42-121); ALT ALANINE AMINOTRANSFERASE 23 IU/L (10-60); AST ASPARTATE AMINOTRANSFERASE 22 IU/L (10-42); BILIRUBIN,TOTAL 0.9 mg/dL (0.2-1.0); BUN - BLOOD UREA NITROGEN 16 mg/dL (6-20); CALCIUM 9.1 mg/dL (8.5-10.3); CARBON DIOXIDE - CO2 24 mmol/L (21-32); CHLORIDE 105 mmol/L (101-111); CHOL/HDL RATIO 2.2 (<4.4); CHOLESTEROL 178 mg/dL; CREATININE 0.6 mg/dL (0.4-1.0); GFR - MDRD 100 (>89); GLUCOSE 103 mg/dL (70-100); HDL CHOLESTEROL 82 mg/dL; LDL CHOLESTEROL,CALCULATED 80 mg/dL; SODIUM 136 mmol/L (135-145); TOTAL PROTEIN 7.1 g/dL (6.7-8.2); VLDL CHOLESTEROL 16 mg/dL
== END 2018-04-13 23:59 | disposition home or self-care (01) ==
LOC: LAB.R 08:00
PROVIDERS: ATTEND Physician Assistant Medical
DX: E55.9 Vitamin D deficiency, unspecified (principal); Z79.899 Other long term (current) drug therapy; I10 Essential (primary) hypertension; E78.2 Mixed hyperlipidemia
CPT/HCPCS: 80053; 80061; 82306; 83721; 85025

== ENCOUNTER 2019-04-20 07:17 | Outpatient (CLI) | payer MEDICARE ==
[2019-04-20 07:35] LABS: BASOPHILS # (AUTO) 0.1 10^3/uL (0.0-0.1); BASOPHILS % (AUTO) 1.1 %; EOSINOPHILS # (AUTO) 0.4 10^3/uL (0.0-0.7); EOSINOPHILS % (AUTO) 5.3 %; HGB - HEMOGLOBIN 13.8 g/dL (12.0-16.0); LYMPHOCYTES % (AUTO) 27.9 %; MEAN CORPUSCULAR HEMOGLOBIN 27.3 pg (27.0-31.0); MEAN CORPUSCULAR VOLUME 85.3 fL (81.0-99.0); MEAN PLATELET VOLUME 10.4 fL (7.9-10.8); MONOCYTES # (AUTO) 0.6 10^3/uL (0.0-1.0); NEUTROPHILS # (AUTO) 3.9 10^3/uL (1.5-6.6); NEUTROPHILS % (AUTO) 56.4 %; PLT - PLATELET COUNT 245 10^3/uL (130-450); RED BLOOD COUNT 5.05 10^6/uL (4.20-5.40); RED CELL DISTRIBUTION WIDTH 14.2 % (12.0-15.0)
[2019-04-20 08:32] LABS: ALBUMIN 4.4 g/dL (3.2-5.5); ALBUMIN/GLOBULIN RATIO 1.5 (1.0-2.2); ALKALINE PHOSPHATASE 78 IU/L (42-121); ALT ALANINE AMINOTRANSFERASE 28 IU/L (10-60); AST ASPARTATE AMINOTRANSFERASE 25 IU/L (10-42); BILIRUBIN,TOTAL 0.8 mg/dL (0.2-1.0); BUN - BLOOD UREA NITROGEN 19 mg/dL (6-20); CALCIUM 10.3 mg/dL (8.5-10.3); CARBON DIOXIDE - CO2 26 mmol/L (21-32); CHLORIDE 104 mmol/L (101-111); CHOL/HDL RATIO 2.5 (<4.4); CHOLESTEROL 177 mg/dL; CREATININE 0.9 mg/dL (0.4-1.0); GFR - MDRD 62 (>89); GLUCOSE 113 mg/dL (70-100); HDL CHOLESTEROL 72 mg/dL; LDL CHOLESTEROL,CALCULATED 87 mg/dL; LDL/HDL RATIO 1.2 (<4.4); SODIUM 141 mmol/L (135-145); TOTAL PROTEIN 7.3 g/dL (6.7-8.2); VLDL CHOLESTEROL 18 mg/dL
== END 2019-04-20 07:18 | disposition home or self-care (01) ==
LOC: LAB 07:17
PROVIDERS: ATTEND Nurse Practitioner
DX: Z78.0 Asymptomatic menopausal state (principal); I10 Essential (primary) hypertension; I63.9 Cerebral infarction, unspecified; Z79.899 Other long term (current) drug therapy; E55.9 Vitamin D deficiency, unspecified; E78.2 Mixed hyperlipidemia; M85.80 Other specified disorders of bone density and structure, unspecified site
CPT/HCPCS: 36415; 80053; 80061; 82306; 83721; 84443; 85025

== ENCOUNTER 2020-05-08 09:52 | Outpatient (CLI) | payer MEDICARE ==
[2020-05-08 10:25] LABS: BASOPHILS # (AUTO) 0.1 10^3/uL (0.0-0.1); EOSINOPHILS # (AUTO) 0.3 10^3/uL (0.0-0.7); EOSINOPHILS % (AUTO) 4.5 %; HGB - HEMOGLOBIN 14.6 g/dL (12.0-16.0); LYMPHOCYTES # (AUTO) 1.6 10^3/uL (1.5-3.5); LYMPHOCYTES % (AUTO) 23.4 %; MEAN CORPUSCULAR HGB CONC 32.4 g/dL (32.0-36.0); MEAN CORPUSCULAR VOLUME 86.4 fL (81.0-99.0); MONOCYTES # (AUTO) 0.5 10^3/uL (0.0-1.0); MONOCYTES % (AUTO) 7.1 %; NEUTROPHILS # (AUTO) 4.3 10^3/uL (1.5-6.6); NEUTROPHILS % (AUTO) 62.4 %; PLT - PLATELET COUNT 240 10^3/uL (130-450); RED BLOOD COUNT 5.22 10^6/uL (4.20-5.40); RED CELL DISTRIBUTION WIDTH 14.2 % (12.0-15.0); WHITE BLOOD COUNT 6.9 x10^3/uL (4.8-10.8)
[2020-05-08 10:41] LABS: ALBUMIN 4.3 g/dL (3.2-5.5); ALBUMIN/GLOBULIN RATIO 1.6 (1.0-2.2); ALKALINE PHOSPHATASE 90 IU/L (42-121); ALT ALANINE AMINOTRANSFERASE 21 IU/L (10-60); AST ASPARTATE AMINOTRANSFERASE 21 IU/L (10-42); BILIRUBIN,TOTAL 0.6 mg/dL (0.2-1.0); BUN - BLOOD UREA NITROGEN 17 mg/dL (6-20); CALCIUM 9.7 mg/dL (8.5-10.3); CARBON DIOXIDE - CO2 24 mmol/L (21-32); CHLORIDE 107 mmol/L (101-111); CHOLESTEROL 170 mg/dL; CREATININE 0.9 mg/dL (0.4-1.0); GLUCOSE 112 mg/dL (70-100); HDL CHOLESTEROL 84 mg/dL; LDL CHOLESTEROL,CALCULATED 69 mg/dL; LDL/HDL RATIO 0.8 (<4.4); SODIUM 139 mmol/L (135-145); VLDL CHOLESTEROL 17 mg/dL
== END 2020-05-08 09:53 | disposition home or self-care (01) ==
LOC: LAB 09:52
PROVIDERS: ATTEND Nurse Practitioner
DX: I10 Essential (primary) hypertension (principal); E55.9 Vitamin D deficiency, unspecified
CPT/HCPCS: 36415; 80053; 80061; 82306; 83721; 84443; 85025

== ENCOUNTER 2020-06-20 14:17 | Outpatient (CLI) | payer MEDICARE ==
--- NOTE | 2020-06-21 12:28 | Mammography Report ---
BILATERAL DIGITAL SCREENING MAMMOGRAM 3D/2D: 06/20/2020 CLINICAL: Routine screening. Comparison is made to exams dated: 11/05/2017 mammogram, 11/08/2015 mammogram, 11/18/2013 mammogram, an d 10/07/2012 mammogram - [facility]. The tissue of both breasts is heterogeneously dense. This may lower the sensitivity of mammography. No significant masses, calcifications, or other findings are seen in either breast. There has been no significant interval change. IMPRESSION: NEGATIVE There is no mammographic evidence of malignancy. A 1 year screening mammogram is recommended. This exam was interpreted at Station ID: [id number]. NOTE: For mammograms, a report in lay terms will be sent to the patient. Approximately 15% of breast malignancies will not be visualized mammographically. In the management of a palpable breast mass, a negative mammogram must not discourage biopsy of a clinically suspicious lesion. Electronically Signed By: Ye Olivares M.D. [facility] [place]:06/20/2020 17:30:37 ACR BI-RADS Category 1: Negative [id number] PARENCHYMAL PATTERN: (D) - The breast(s) demonstrate(s) heterogeneously dense fibroglandular ciara lemus. BI-RADS CATEGORY: (1) - 1 RECOMMENDATION: (ANNUAL) - Recommend routine annual screening mammography. [id number] 1 year screening LATERALITY: (B)
== END 2020-06-20 14:18 | disposition home or self-care (01) ==
LOC: DI 14:17
PROVIDERS: ATTEND Nurse Practitioner
DX: Z12.31 Encounter for screening mammogram for malignant neoplasm of breast (principal)

== ENCOUNTER 2020-06-20 14:18 | Outpatient (CLI) | payer MEDICARE ==
--- NOTE | 2020-06-20 16:38 | DEXA Report ---
PROCEDURE: Dexa Spine and/or Hip INDICATIONS: POSTMENOPAUSAL TECHNIQUE: Dual energy x-ray absorptiometry (DXA) was performed on a [employer] System. Regions measur ed are the AP Spine, femoral neck, and if needed forearm. COMPARISON: 11/05/2017 and 11/02/2015. FINDINGS: Lumbar Spine: Bone Mineral Density 1.195 g/cm/cm,T score 0.1, normal Left Hip: Bone Mineral Density 0.862 g/cm/cm,T score -1.2, osteopenia Left Femoral Neck: Bone Mineral Density 0.805 g/cm/cm, T score -1.7, osteopenia (T score greater or equal to -1.0: NORMAL) (T score from -1.1 to -2.4: OSTEOPENIA) (T score less than or equal to -2.5 to: OSTEOPOROSIS) Impression: Osteopenia. Bone marrow density has increased approximately 6% in the interval since prio r exam obtained 11/05/2017. Patients with diagnosis of osteoporosis or osteopenia should have regular bone mineral density assess ment. For those eligible for Medicare, routine testing is allowed once every 2 years. Testing frequ ency can be increased for patients who have rapidly progressing disease or for those who are receivin g medical therapy to restore bone mass. Reviewed by: Tessie Guan MD, PhD on 06/20/2020 4:36 PM PST Approved by: Tessie Guan MD, PhD on 06/20/2020 4:36 PM PST Station ID: [id number]
== END 2020-06-20 14:19 | disposition home or self-care (01) ==
LOC: DI 14:18
PROVIDERS: ATTEND Nurse Practitioner
DX: M85.89 Other specified disorders of bone density and structure, multiple sites (principal); Z78.0 Asymptomatic menopausal state

== ENCOUNTER 2021-06-04 07:00 | Outpatient (CLI) | payer MEDICARE ==
[2021-06-04 11:58] LABS: BILIRUBIN,URINE NEGATIVE (NEGATIVE); GLUCOSE, URINE (UA) NEGATIVE (NEGATIVE); KETONES,URINE (UA) NEGATIVE (NEGATIVE); LEUKOCYTE ESTERASE, URINE NEGATIVE (NEGATIVE); NITRITE,URINE NEGATIVE (NEGATIVE); OCCULT BLOOD,URINE NEGATIVE (NEGATIVE); PROTEIN,URINE NEGATIVE (NEGATIVE); UROBILINOGEN,URINE 0.2 (NORMAL) E.U./dL (NORMAL)
[2021-06-04 12:00] LABS: CLARITY,URINE CLEAR (CLEAR)
[2021-06-04 12:03] LABS: BASOPHILS # (AUTO) 0.1 10^3/uL (0.0-0.1); BASOPHILS % (AUTO) 1.1 %; EOSINOPHILS # (AUTO) 0.2 10^3/uL (0.0-0.7); EOSINOPHILS % (AUTO) 3.7 %; HCT - HEMATOCRIT 46.5 % (37.0-47.0); HGB - HEMOGLOBIN 14.9 g/dL (12.0-16.0); LYMPHOCYTES # (AUTO) 1.6 10^3/uL (1.5-3.5); LYMPHOCYTES % (AUTO) 24.3 %; MEAN CORPUSCULAR HEMOGLOBIN 27.6 pg (27.0-31.0); MEAN CORPUSCULAR VOLUME 86.1 fL (81.0-99.0); MEAN PLATELET VOLUME 11.9 fL (7.9-10.8); MONOCYTES # (AUTO) 0.6 10^3/uL (0.0-1.0); MONOCYTES % (AUTO) 8.5 %; NEUTROPHILS % (AUTO) 61.2 %; PLT - PLATELET COUNT 238 10^3/uL (130-450); RED CELL DISTRIBUTION WIDTH 14.4 % (12.0-15.0); WHITE BLOOD COUNT 6.6 x10^3/uL (4.8-10.8)
[2021-06-04 12:26] LABS: ALBUMIN 4.3 g/dL (3.2-5.5); ALBUMIN/GLOBULIN RATIO 1.5 (1.0-2.2); ALKALINE PHOSPHATASE 97 IU/L (42-121); ALT ALANINE AMINOTRANSFERASE 21 IU/L (10-60); AST ASPARTATE AMINOTRANSFERASE 21 IU/L (10-42); BILIRUBIN,TOTAL 0.7 mg/dL (0.2-1.0); BUN - BLOOD UREA NITROGEN 23 mg/dL (6-20); CALCIUM 10.1 mg/dL (8.5-10.3); CARBON DIOXIDE - CO2 27 mmol/L (21-32); CHLORIDE 103 mmol/L (101-111); CHOL/HDL RATIO 2.1 (<4.4); CHOLESTEROL 166 mg/dL; CREATININE 0.9 mg/dL (0.4-1.0); GFR - MDRD 62 (>89); GLUCOSE 103 mg/dL (70-100); HDL CHOLESTEROL 80 mg/dL; LDL CHOLESTEROL,CALCULATED 75 mg/dL; LDL/HDL RATIO 0.9 (<4.4); POTASSIUM 4.3 mmol/L (3.5-5.0); SODIUM 138 mmol/L (135-145); THYROID STIMULATING HORMONE 1.06 uIU/mL (0.34-5.60); TOTAL PROTEIN 7.2 g/dL (6.7-8.2); TRIGLYCERIDES 57 mg/dL; VLDL CHOLESTEROL 11 mg/dL
[2021-06-04 12:34] LABS: BACTERIA,URINE Rare /HPF (None Seen); CRYSTALS,URINE 11-25 Ca Oxalate /LPF; RBC,URINE None Seen /HPF (0-5); SQUAMOUS EPITHELIAL CELL,UR FEW Squamous (<= Few); WBC,URINE 0-3 /HPF (0-5)
[2021-06-04 13:26] LABS: ESTIMATED AVERAGE GLUCOSE 131 mg/dL (70-100); HEMOGLOBIN A1c% 6.2 % (4.27-6.07)
== END 2021-06-04 23:59 | disposition home or self-care (01) ==
LOC: LAB.WCP 07:00
PROVIDERS: ATTEND Nurse Practitioner
DX: E78.2 Mixed hyperlipidemia (principal); R53.83 Other fatigue; E66.9 Obesity, unspecified
CPT/HCPCS: 36415; 80053; 80061; 81001; 83036; 83721; 84443; 85025; 87086

== ENCOUNTER 2022-05-17 08:15 | Outpatient (CLI) | payer MEDICARE ==
--- NOTE | 2022-05-17 10:49 | Mammography Report ---
BILATERAL DIGITAL SCREENING MAMMOGRAM 3D/2D: 05/17/2022 CLINICAL: Routine screening. Comparison is made to exams dated: 06/20/2020 mammogram, 11/05/2017 mammogram, 11/08/2015 mammogram, and 11/18/2013 mammogram - [facility]. Both breasts are heterogeneously dense, which may obscure small masses (category c / 51-75% glandular tissue). No significant masses, calcifications, or other findings are seen in either breast. There has been no significant interval change. IMPRESSION: NEGATIVE There is no mammographic evidence of malignancy. A 1 year screening mammogram is recommended. Based on the Tyrer Cuzick model (a risk assessment model) the patients lifetime risk is 10.4% and he r 10 year risk is 7.2%. According to the ACR, ACS, and NCCN guidelines, an annual breast MRI exam brenda ng with mammogram is recommended if the patients lifetime risk is 20% or greater. This exam was interpreted at Station ID: [id number]. NOTE: For mammograms, a report in lay terms will be sent to the patient. Approximately 15% of breast malignancies will not be visualized mammographically. In the management of a palpable breast mass, a negative mammogram must not discourage biopsy of a clinically suspicious lesion. Electronically Signed By: Germania ayala/abigail:05/17/2022 08:49:44 ACR BI-RADS Category 1: Negative 3341F PARENCHYMAL PATTERN: (D) - The breast(s) demonstrate(s) heterogeneously dense fibroglandular parrolandy ma. BI-RADS CATEGORY: (1) - 1 RECOMMENDATION: (ANNUAL) - Recommend routine annual screening mammography. [id number] 1 year screening LATERALITY: (B)
== END 2022-05-17 08:16 | disposition home or self-care (01) ==
LOC: DI 08:15
DX: Z12.31 Encounter for screening mammogram for malignant neoplasm of breast (principal)

== ENCOUNTER 2022-07-05 08:40 | Outpatient (CLI) | payer MEDICARE ==
[2022-07-05 08:59] LABS: BASOPHILS # (AUTO) 0.1 10^3/uL (0.0-0.1); BASOPHILS % (AUTO) 0.9 %; EOSINOPHILS # (AUTO) 0.4 10^3/uL (0.0-0.7); EOSINOPHILS % (AUTO) 6.1 %; HCT - HEMATOCRIT 45.8 % (37.0-47.0); HGB - HEMOGLOBIN 14.6 g/dL (12.0-16.0); LYMPHOCYTES # (AUTO) 1.5 10^3/uL (1.5-3.5); LYMPHOCYTES % (AUTO) 22.5 %; MEAN CORPUSCULAR HEMOGLOBIN 27.7 pg (27.0-31.0); MEAN CORPUSCULAR HGB CONC 31.9 g/dL (32.0-36.0); MEAN CORPUSCULAR VOLUME 86.9 fL (81.0-99.0); MEAN PLATELET VOLUME 10.9 fL (7.9-10.8); MONOCYTES # (AUTO) 0.5 10^3/uL (0.0-1.0); NEUTROPHILS % (AUTO) 61.3 %; PLT - PLATELET COUNT 218 10^3/uL (130-450); RED BLOOD COUNT 5.27 10^6/uL (4.20-5.40); RED CELL DISTRIBUTION WIDTH 14.3 % (12.0-15.0); WHITE BLOOD COUNT 6.5 x10^3/uL (4.8-10.8)
[2022-07-05 09:13] LABS: ALBUMIN 4.2 g/dL (3.2-5.5); ALBUMIN/GLOBULIN RATIO 1.3 (1.0-2.2); ALKALINE PHOSPHATASE 102 IU/L (42-121); ALT ALANINE AMINOTRANSFERASE 23 IU/L (10-60); AST ASPARTATE AMINOTRANSFERASE 20 IU/L (10-42); BILIRUBIN,TOTAL 0.9 mg/dL (0.2-1.0); BUN - BLOOD UREA NITROGEN 16 mg/dL (6-20); CALCIUM 10.3 mg/dL (8.5-10.3); CARBON DIOXIDE - CO2 27 mmol/L (21-32); CHLORIDE 103 mmol/L (101-111); CHOLESTEROL 176 mg/dL; CREATININE 0.8 mg/dL (0.4-1.0); GFR - MDRD 71 (>89); GLUCOSE 111 mg/dL (70-100); HDL CHOLESTEROL 87 mg/dL; LDL CHOLESTEROL,CALCULATED 76 mg/dL; LDL/HDL RATIO 0.9 (<4.4); POTASSIUM 4.3 mmol/L (3.5-5.0); SODIUM 139 mmol/L (135-145); TOTAL PROTEIN 7.4 g/dL (6.7-8.2); TRIGLYCERIDES 65 mg/dL; VLDL CHOLESTEROL 13 mg/dL
[2022-07-05 09:25] LABS: THYROID STIMULATING HORMONE 1.5 uIU/mL (0.34-5.60)
[2022-07-05 10:45] LABS: ESTIMATED AVERAGE GLUCOSE 131 mg/dL (70-100); HEMOGLOBIN A1c% 6.2 % (4.27-6.07)
== END 2022-07-05 08:41 | disposition home or self-care (01) ==
LOC: LAB 08:40
PROVIDERS: ATTEND Nurse Practitioner
DX: I10 Essential (primary) hypertension (principal); E78.2 Mixed hyperlipidemia; R73.03 Prediabetes; E04.9 Nontoxic goiter, unspecified
CPT/HCPCS: 36415; 80053; 80061; 83036; 83721; 84443; 85025

== ENCOUNTER 2022-08-09 15:15 | Outpatient (CLI) | payer MEDICARE ==
--- NOTE | 2022-08-09 16:57 | DEXA Report ---
PROCEDURE: Dexa Spine and/or Hip INDICATIONS: POSTMENOPAUSAL TECHNIQUE: Dual energy x-ray absorptiometry (DXA) was performed on a [employer] System. Regions measur ed are the AP Spine, femoral neck, and if needed forearm. COMPARISON: 06/20/2020. FINDINGS: Lumbar Spine: Bone Mineral Density 1.131 g/cm/cm,T score -0.3, there is interval 4.4% decrease in total lumbar s pine bone mineral density. Left Femoral Neck: Bone Mineral Density 0.780 g/cm/cm, T score -1.9, Left Hip: Bone Mineral Density 0.856 g/cm/cm,T score -1.2, there is interval 0.7% decrease in left total hip b one mineral density. (T score greater or equal to -1.0: NORMAL) (T score from -1.1 to -2.4: OSTEOPENIA) (T score less than or equal to -2.5 to: OSTEOPOROSIS) Impression: Osteopenia. Patients with diagnosis of osteoporosis or osteopenia should have regular bone mineral density assess ment. For those eligible for Medicare, routine testing is allowed once every 2 years. Testing frequ ency can be increased for patients who have rapidly progressing disease or for those who are receivin g medical therapy to restore bone mass. Reviewed by: Magdy Bonilla MD on 08/09/2022 4:56 PM PDT Approved by: Magdy Bonilla MD on 08/09/2022 4:56 PM PDT Station ID: [id number]
== END 2022-08-09 15:16 | disposition home or self-care (01) ==
LOC: DI 15:15
PROVIDERS: ATTEND Nurse Practitioner
DX: Z78.0 Asymptomatic menopausal state (principal); M85.80 Other specified disorders of bone density and structure, unspecified site